=== PATIENT | male | born 1940 | race Caucasian/White ===

== ENCOUNTER 2020-05-29 06:51 | Inpatient (IN) ==
[2020-05-29] MEDS ORDERED: Dexamethasone 4 MG/ML VIAL IVP ONE (07:06)
[2020-05-29] MEDS ORDERED: Doxycycline 100 MG in 0.9 % Sodium Chloride Mini Bag 100 ML IVPB ONE (07:06)
[2020-05-29] MEDS ORDERED: Ipratropium/Albuterol Neb 3 ML IH ONE (07:06)
[2020-05-29] MEDS ORDERED: Ondansetron 4 MG/2 ML VIAL IVP ONE (07:12)
[2020-05-29] MEDS ORDERED: Acetaminophen 325 MG TABLET PO ONE (07:13)
[2020-05-29 08:01] LABS: Basophils % 0.2 %; Hematocrit 39.7 % (37.5-50.1); Hemoglobin 12.8 g/dL (12.9-16.9); Immature Granulocytes % 0.5 % (0-4); Lymphocytes # 0.3 K/mcL (0.6-4.6); Lymphocytes % 5.5 %; Mean Corpuscular HGB Conc 32.2 g/dL (31.6-35.5); Mean Corpuscular Hemoglobin 29.5 pg (28.0-33.3); Mean Corpuscular Volume 91.5 fL (83.0-100.0); Mean Platelet Volume 9.5 fL (9.4-12.4); Monocytes # 0.5 K/mcL (0.0-1.3); Monocytes % 8.3 %; Platelet Count 165 K/mcL (140-400); Red Blood Count 4.34 M/mcL (4.19-5.50); Red Cell Distribution Width 12.9 % (11.5-14.5); Segmented Neutrophils % 85.5 %
[2020-05-29 08:05] LABS: Neutrophils # 5.2 K/mcL (1.6-8.9); White Blood Count 6.1 K/mcL (4.3-11.1)
[2020-05-29 08:08] LABS: INR 1.1; Prothrombin Time 12.8 Seconds (9.4-12.1)
[2020-05-29 08:10] LABS: Activated Partial Thrombo Time 23.9 Seconds (26.0-36.0)
[2020-05-29 08:56] LABS: Albumin 3.6 g/dL (3.5-5.7); Albumin/Globulin Ratio 1.3 (1.1-2.2); Globulin 2.7 g/dL (2.4-3.5); Lactate Dehydrogenase 270 Units/L (140-271); Total Protein 6.3 g/dL (6.4-8.9)
[2020-05-29 09:15] LABS: Alanine Aminotransferase 29 Units/L (7-52); Alkaline Phosphatase 75 Units/L (34-104); Aspartate Amino Transferase 43 Units/L (13-39); BUN/Creatinine Ratio 21 (6-26); Bilirubin,Direct 0.1 mg/dL (0.0-0.2); Bilirubin,Indirect 0.3 mg/dL (0.0-1.0); Bilirubin,Total 0.4 mg/dL (0.3-1.0); Blood Urea Nitrogen 26 mg/dL (8-23); Calcium 8.8 mg/dL (8.6-10.3); Carbon Dioxide 24 mEq/L (23-29); Chloride 106 mEq/L (98-107); Ferritin 207 ng/mL (20-250); Glucose 127 mg/dL (70-105); Magnesium 1.7 mg/dL (1.6-2.6); Osmolality,Calculated 294 (280-300); Phosphorous 2.1 mg/dL (2.7-4.5); Potassium 4.8 mEq/L (3.5-5.1); Sodium 139 mEq/L (136-145); Troponin I < 0.03 ng/mL (< 0.04); eGFR For African Americans > 60 (> 60); eGFR For Non-African Americans 57 (> 60)
[2020-05-29] MEDS ORDERED: Isovue-370 500 ML BOTTLE IVP ONE (09:31)
[2020-05-29 09:41] LABS: C-Reactive Protein 30 mg/L (Less than 10)
[2020-05-29] MEDS ORDERED: Naloxone 0.4 MG/ML INJ IVP PRN (10:34)
[2020-05-29] MEDS ORDERED: cefTRIAXone 1,000 MG in Water for inj. (sterile) 10 ML IVP SCH (11:00)
[2020-05-29] MEDS: Azithromycin 500 MG in 0.9 % Sodium Chloride 250 ML IVPB SCH (11:28)
[2020-05-29 23:30] LABS: Bacteria,Urine Few per hpf (None-Few); Bilirubin,Urine Negative (Negative); Blood,Urine Negative (Negative); Clarity,Urine Clear (Clear); Color,Urine Yellow (Yellow); Glucose,Urine (UA) Normal (Normal); Ketones,Urine Negative (Negative); Leukocyte Esterase,Urine Negative (Negative); Mucus,Urine Few per lpf (None-Few); Nitrite,Urine Negative (Negative); Protein,Urine 50 mg/dL (Neg-Trace); RBC,Urine 0-3 per hpf (0-3); Specific Gravity,Urine > 1.030 (1.010-1.025); Urobilinogen,Urine Normal (Normal); WBC,Urine 0-3 per hpf (0-3)
[2020-05-30] MEDS: *HR* Enoxaparin 40 MG/0.4 ML SYRINGE SQ SCH (05:18)
[2020-05-30 05:26] LABS: Basophils % 0.1 %; Hematocrit 42.4 % (37.5-50.1); Immature Granulocytes % 0.8 % (0-4); Lymphocytes # 0.5 K/mcL (0.6-4.6); Mean Corpuscular HGB Conc 30.7 g/dL (31.6-35.5); Mean Corpuscular Hemoglobin 29.6 pg (28.0-33.3); Mean Corpuscular Volume 96.6 fL (83.0-100.0); Mean Platelet Volume 10.1 fL (9.4-12.4); Monocytes # 0.6 K/mcL (0.0-1.3); Monocytes % 5.8 %; Platelet Count 172 K/mcL (140-400); Red Blood Count 4.39 M/mcL (4.19-5.50); Red Cell Distribution Width 13.1 % (11.5-14.5); Segmented Neutrophils % 88.3 %
[2020-05-30 05:30] LABS: Neutrophils # 8.7 K/mcL (1.6-8.9); White Blood Count 9.8 K/mcL (4.3-11.1)
[2020-05-30 05:33] LABS: Fibrinogen 391 mg/dL (169-393)
[2020-05-30 05:35] LABS: D-Dimer 1655 ng/mLFEU (0-500)
[2020-05-30 05:47] LABS: Alanine Aminotransferase 27 Units/L (7-52); Albumin 3.7 g/dL (3.5-5.7); Albumin/Globulin Ratio 1.3 (1.1-2.2); Alkaline Phosphatase 75 Units/L (34-104); Aspartate Amino Transferase 38 Units/L (13-39); Bilirubin,Direct 0.1 mg/dL (0.0-0.2); Bilirubin,Indirect 0.2 mg/dL (0.0-1.0); Bilirubin,Total 0.3 mg/dL (0.3-1.0); Globulin 2.9 g/dL (2.4-3.5); Total Protein 6.6 g/dL (6.4-8.9)
[2020-05-30 06:48] LABS: BUN/Creatinine Ratio 22 (6-26); Blood Urea Nitrogen 28 mg/dL (8-23); Calcium 8.9 mg/dL (8.6-10.3); Carbon Dioxide 20 mEq/L (23-29); Chloride 105 mEq/L (98-107); Glucose 141 mg/dL (70-105); Magnesium 1.9 mg/dL (1.6-2.6); Osmolality,Calculated 296 (280-300); Phosphorous 2.5 mg/dL (2.7-4.5); Potassium 4.2 mEq/L (3.5-5.1); Sodium 139 mEq/L (136-145); eGFR For African Americans > 60 (> 60); eGFR For Non-African Americans 53 (> 60)
[2020-05-30] MEDS ORDERED: Furosemide 20 MG/2 ML VIAL IVP ONE (07:40)
[2020-05-30] MEDS: cefTRIAXone 2,000 MG in Water for inj. (sterile) 20 ML IVP SCH (08:17)
[2020-05-30] MEDS ORDERED: Dexamethasone Sodium Phos/PF 10 MG/ML VIAL IVP SCH (09:00)
[2020-05-30] MEDS ORDERED: Dexmedetomidine HCl 400 MCG/100 ML MLS IVC SCH (10:45)
[2020-05-30] MEDS: Azithromycin 500 MG in 0.9 % Sodium Chloride 250 ML IVPB SCH (12:40)
[2020-05-30] MEDS ORDERED: Remdesivir 200 MG in 0.9 % Sodium Chloride 100 ML IVPB ONE (13:30)
[2020-05-31 05:36] LABS: Hematocrit 39.4 % (37.5-50.1); Hemoglobin 12.9 g/dL (12.9-16.9); Mean Corpuscular HGB Conc 32.7 g/dL (31.6-35.5); Mean Corpuscular Hemoglobin 30.4 pg (28.0-33.3); Mean Corpuscular Volume 92.9 fL (83.0-100.0); Mean Platelet Volume 9.5 fL (9.4-12.4); Platelet Count 218 K/mcL (140-400); Red Blood Count 4.24 M/mcL (4.19-5.50); Red Cell Distribution Width 13.2 % (11.5-14.5); White Blood Count 10.5 K/mcL (4.3-11.1)
[2020-05-31 05:46] LABS: INR 1.2; Prothrombin Time 13.6 Seconds (9.4-12.1)
[2020-05-31 05:58] LABS: Alanine Aminotransferase 34 Units/L (7-52); Albumin 3.5 g/dL (3.5-5.7); Albumin/Globulin Ratio 1.3 (1.1-2.2); Alkaline Phosphatase 68 Units/L (34-104); Aspartate Amino Transferase 46 Units/L (13-39); BUN/Creatinine Ratio 30 (6-26); Bilirubin,Total 0.5 mg/dL (0.3-1.0); Blood Urea Nitrogen 35 mg/dL (8-23); Calcium 8.9 mg/dL (8.6-10.3); Carbon Dioxide 24 mEq/L (23-29); Chloride 106 mEq/L (98-107); Globulin 2.8 g/dL (2.4-3.5); Glucose 102 mg/dL (70-105); Osmolality,Calculated 296 (280-300); Potassium 4.5 mEq/L (3.5-5.1); Sodium 139 mEq/L (136-145); Total Protein 6.3 g/dL (6.4-8.9); eGFR For African Americans > 60 (> 60); eGFR For Non-African Americans > 60 (> 60)
[2020-05-31] MEDS: *HR* Enoxaparin 40 MG/0.4 ML SYRINGE SQ SCH (06:16)
[2020-05-31] MEDS: cefTRIAXone 2,000 MG in Water for inj. (sterile) 20 ML IVP SCH (09:22)
[2020-05-31] MEDS: Acetaminophen 325 MG TABLET PO PRN ×2 (10:47→21:41)
[2020-05-31] MEDS: Azithromycin 500 MG in 0.9 % Sodium Chloride 250 ML IVPB SCH (11:51)
[2020-05-31] MEDS: Furosemide 20 MG/2 ML VIAL IVP SCH (16:30)
[2020-05-31] MEDS: Remdesivir 100 MG in 0.9 % Sodium Chloride 100 ML IVPB SCH (16:31)
[2020-05-31] MEDS ORDERED: Melatonin 3 MG TABLET PO ONE (20:00)
[2020-06-01] MEDS: *HR* Enoxaparin 40 MG/0.4 ML SYRINGE SQ SCH (05:01)
[2020-06-01 05:23] LABS: Basophils % 0.3 %; Hematocrit 46.7 % (37.5-50.1); Lymphocytes # 0.8 K/mcL (0.6-4.6); Lymphocytes % 8.8 %; Mean Corpuscular HGB Conc 31.5 g/dL (31.6-35.5); Mean Corpuscular Volume 95.3 fL (83.0-100.0); Mean Platelet Volume 9.8 fL (9.4-12.4); Monocytes # 0.5 K/mcL (0.0-1.3); Monocytes % 5.4 %; Neutrophils # 7.7 K/mcL (1.6-8.9); Platelet Count 232 K/mcL (140-400); Red Cell Distribution Width 13.2 % (11.5-14.5); Segmented Neutrophils % 84.5 %; White Blood Count 9.1 K/mcL (4.3-11.1)
[2020-06-01 05:24] LABS: Hemoglobin 14.7 g/dL (12.9-16.9)
[2020-06-01 05:27] LABS: INR 1.4; Prothrombin Time 15.9 Seconds (9.4-12.1)
[2020-06-01 05:45] LABS: Alanine Aminotransferase 35 Units/L (7-52); Albumin 3.8 g/dL (3.5-5.7); Albumin/Globulin Ratio 1.2 (1.1-2.2); Alkaline Phosphatase 72 Units/L (34-104); Aspartate Amino Transferase 46 Units/L (13-39); BUN/Creatinine Ratio 34 (6-26); Bilirubin,Total 0.7 mg/dL (0.3-1.0); Blood Urea Nitrogen 39 mg/dL (8-23); Calcium 9.1 mg/dL (8.6-10.3); Carbon Dioxide 26 mEq/L (23-29); Chloride 103 mEq/L (98-107); Globulin 3.3 g/dL (2.4-3.5); Glucose 109 mg/dL (70-105); Osmolality,Calculated 296 (280-300); Potassium 4.4 mEq/L (3.5-5.1); Sodium 138 mEq/L (136-145); Total Protein 7.1 g/dL (6.4-8.9); eGFR For African Americans > 60 (> 60); eGFR For Non-African Americans > 60 (> 60)
[2020-06-01] MEDS: Furosemide 20 MG/2 ML VIAL IVP SCH (08:53)
[2020-06-01] MEDS: cefTRIAXone 2,000 MG in Water for inj. (sterile) 20 ML IVP SCH (08:53)
[2020-06-01] MEDS: Azithromycin 500 MG in 0.9 % Sodium Chloride 250 ML IVPB SCH (12:00)
[2020-06-01] MEDS ORDERED: *HR* Metoprolol 5 MG/5 ML VIAL IVP ONE ×2 (14:03→14:06)
[2020-06-01] MEDS ORDERED: *HR* Heparin 5,000 UNIT/ML VIAL IVP ONE (14:43)
[2020-06-01] MEDS ORDERED: *HR* Heparin 5,000 UNIT/ML VIAL IVP PRN ×2 (14:43)
[2020-06-01] MEDS ORDERED: 0.9 % Sodium Chloride 1,000 ML IVC SCH (16:30)
[2020-06-01] MEDS: DilTIAZem 50 MG/50 ML IV.SOLN IVC SCH (16:30)
[2020-06-01] MEDS: Heparin 25,000UNIT/250ML 1/2NS 25,000 UNIT/250 ML IV.SOLN IVC SCH (16:31)
[2020-06-01] MEDS: *HR* OxyCODONE Immed Rel 5 MG TABLET PO PRN (16:38)
[2020-06-01] MEDS: Acetaminophen 325 MG TABLET PO PRN (16:39)
[2020-06-01] MEDS: Remdesivir 100 MG in 0.9 % Sodium Chloride 100 ML IVPB SCH (17:32)
[2020-06-01 18:08] LABS: Heparin anti-factor XA UFH 0.07 IU/mL (0.30-0.70); INR 1.4; Prothrombin Time 16.3 Seconds (9.4-12.1)
[2020-06-02] MEDS: *HR* OxyCODONE Immed Rel 5 MG TABLET PO PRN (00:15)
[2020-06-02] MEDS: Acetaminophen 325 MG TABLET PO PRN (00:16)
[2020-06-02] MEDS ORDERED: *HR* LORazepam 2 MG/ML VIAL IVP ONE ×3 (00:17→13:10)
[2020-06-02] MEDS ORDERED: *HR* LORazepam 2 MG/ML VIAL ONE (00:18)
[2020-06-02 00:57] LABS: Basophils % 0.2 %; Eosinophils % 0.1 %; Hematocrit 40.5 % (37.5-50.1); Hemoglobin 13.3 g/dL (12.9-16.9); Immature Granulocytes % 0.7 % (0-4); Lymphocytes # 0.5 K/mcL (0.6-4.6); Lymphocytes % 5.1 %; Mean Corpuscular HGB Conc 32.8 g/dL (31.6-35.5); Mean Corpuscular Hemoglobin 30.3 pg (28.0-33.3); Mean Corpuscular Volume 92.3 fL (83.0-100.0); Mean Platelet Volume 9.5 fL (9.4-12.4); Monocytes # 0.6 K/mcL (0.0-1.3); Monocytes % 6.3 %; Neutrophils # 8.5 K/mcL (1.6-8.9); Platelet Count 255 K/mcL (140-400); Red Blood Count 4.39 M/mcL (4.19-5.50); Red Cell Distribution Width 13.2 % (11.5-14.5); Segmented Neutrophils % 87.6 %; White Blood Count 9.7 K/mcL (4.3-11.1)
[2020-06-02 01:04] LABS: INR 1.5; Prothrombin Time 17.3 Seconds (9.4-12.1)
[2020-06-02] MEDS: DilTIAZem 50 MG/50 ML IV.SOLN IVC SCH ×2 (01:08→06:27)
[2020-06-02 01:15] LABS: Alanine Aminotransferase 29 Units/L (7-52); Albumin 3.1 g/dL (3.5-5.7); Alkaline Phosphatase 69 Units/L (34-104); Aspartate Amino Transferase 31 Units/L (13-39); BUN/Creatinine Ratio 32 (6-26); Bilirubin,Total 0.6 mg/dL (0.3-1.0); Blood Urea Nitrogen 35 mg/dL (8-23); Calcium 8.4 mg/dL (8.6-10.3); Carbon Dioxide 26 mEq/L (23-29); Chloride 104 mEq/L (98-107); Glucose 121 mg/dL (70-105); Osmolality,Calculated 295 (280-300); Potassium 3.8 mEq/L (3.5-5.1); Sodium 138 mEq/L (136-145); Total Protein 6.1 g/dL (6.4-8.9); eGFR For African Americans > 60 (> 60); eGFR For Non-African Americans > 60 (> 60)
[2020-06-02] MEDS: cefTRIAXone 2,000 MG in Water for inj. (sterile) 20 ML IVP SCH (09:48)
[2020-06-02] MEDS: DilTIAZem CD (24hr) 120 MG CAP.ER.24H PO SCH (09:49)
[2020-06-02] MEDS: Furosemide 20 MG/2 ML VIAL IVP SCH (09:49)
[2020-06-02] MEDS: Azithromycin 500 MG in 0.9 % Sodium Chloride 250 ML IVPB SCH (09:53)
[2020-06-02] MEDS: Remdesivir 100 MG in 0.9 % Sodium Chloride 100 ML IVPB SCH (14:59)
[2020-06-02] MEDS: Heparin 25,000UNIT/250ML 1/2NS 25,000 UNIT/250 ML IV.SOLN IVC SCH (16:01)
[2020-06-02] MEDS: Apixaban 5 MG TABLET PO SCH (20:20)
[2020-06-03] MEDS: cefTRIAXone 2,000 MG in Water for inj. (sterile) 20 ML IVP SCH (08:58)
[2020-06-03] MEDS: DilTIAZem CD (24hr) 120 MG CAP.ER.24H PO SCH (08:59)
[2020-06-03] MEDS: Apixaban 5 MG TABLET PO SCH ×2 (08:59→21:43)
[2020-06-03] MEDS: Furosemide 20 MG/2 ML VIAL IVP SCH (08:59)
[2020-06-03 10:12] LABS: Hematocrit 46.4 % (37.5-50.1); Hemoglobin 14.3 g/dL (12.9-16.9); Mean Corpuscular HGB Conc 30.8 g/dL (31.6-35.5); Mean Corpuscular Hemoglobin 29.3 pg (28.0-33.3); Mean Corpuscular Volume 95.1 fL (83.0-100.0); Mean Platelet Volume 10.5 fL (9.4-12.4); Platelet Count 253 K/mcL (140-400); Red Blood Count 4.88 M/mcL (4.19-5.50); Red Cell Distribution Width 13.2 % (11.5-14.5)
[2020-06-03 10:17] LABS: INR 1.9; Prothrombin Time 21.6 Seconds (9.4-12.1)
[2020-06-03 10:32] LABS: Alanine Aminotransferase 35 Units/L (7-52); Albumin 3.5 g/dL (3.5-5.7); Albumin/Globulin Ratio 0.9 (1.1-2.2); Alkaline Phosphatase 82 Units/L (34-104); Aspartate Amino Transferase 46 Units/L (13-39); BUN/Creatinine Ratio 40 (6-26); Bilirubin,Total 0.5 mg/dL (0.3-1.0); Blood Urea Nitrogen 46 mg/dL (8-23); Calcium 9.3 mg/dL (8.6-10.3); Carbon Dioxide 25 mEq/L (23-29); Chloride 105 mEq/L (98-107); Globulin 3.9 g/dL (2.4-3.5); Glucose 112 mg/dL (70-105); Osmolality,Calculated 305 (280-300); Potassium 4.3 mEq/L (3.5-5.1); Sodium 141 mEq/L (136-145); Total Protein 7.4 g/dL (6.4-8.9); eGFR For African Americans > 60 (> 60); eGFR For Non-African Americans > 60 (> 60)
[2020-06-03] MEDS: Azithromycin 500 MG in 0.9 % Sodium Chloride 250 ML IVPB SCH (11:18)
[2020-06-03] MEDS: Remdesivir 100 MG in 0.9 % Sodium Chloride 100 ML IVPB SCH (14:49)
[2020-06-03] MEDS ORDERED: *HR* LORazepam 2 MG/ML VIAL IVP ONE (21:19)
[2020-06-04] MEDS ORDERED: *HR* LORazepam 2 MG/ML VIAL IVP ONE (00:30)
[2020-06-04] MEDS: Dexmedetomidine HCl 400 MCG/100 ML MLS IVC SCH ×2 (01:05→21:35)
[2020-06-04] MEDS: *HR* OxyCODONE Immed Rel 5 MG TABLET PO PRN ×2 (01:06→19:52)
[2020-06-04] MEDS: DilTIAZem CD (24hr) 120 MG CAP.ER.24H PO SCH ×2 (07:51→13:13)
[2020-06-04] MEDS: Apixaban 5 MG TABLET PO SCH ×3 (07:51→19:54)
[2020-06-04] MEDS: cefTRIAXone 2,000 MG in Water for inj. (sterile) 20 ML IVP SCH (07:52)
[2020-06-04] MEDS: Furosemide 20 MG/2 ML VIAL IVP SCH (07:52)
[2020-06-04] MEDS: Azithromycin 500 MG in 0.9 % Sodium Chloride 250 ML IVPB SCH (13:12)
[2020-06-04] MEDS: Furosemide 40 MG/4 ML VIAL IVP SCH (13:15)
[2020-06-04] MEDS: DilTIAZem 50 MG/50 ML IV.SOLN IVC SCH (16:15)
[2020-06-04] MEDS ORDERED: Haloperidol Lactate 5 MG/ML VIAL IVP ONE (18:00)
[2020-06-04] MEDS ORDERED: *HR* Metoprolol 5 MG/5 ML VIAL IVP ONE (18:02)
[2020-06-05] MEDS: *HR* OxyCODONE Immed Rel 5 MG TABLET PO PRN ×2 (01:19→23:01)
[2020-06-05 05:23] LABS: Basophils % 0.3 %; Eosinophils # 0.1 K/mcL (0.0-0.6); Eosinophils % 0.6 %; Hematocrit 42.2 % (37.5-50.1); Hemoglobin 13.6 g/dL (12.9-16.9); Immature Granulocytes % 1.3 % (0-4); Lymphocytes # 0.7 K/mcL (0.6-4.6); Lymphocytes % 7.6 %; Mean Corpuscular HGB Conc 32.2 g/dL (31.6-35.5); Mean Corpuscular Hemoglobin 30.4 pg (28.0-33.3); Mean Corpuscular Volume 94.2 fL (83.0-100.0); Mean Platelet Volume 9.8 fL (9.4-12.4); Monocytes # 0.5 K/mcL (0.0-1.3); Monocytes % 5.1 %; Neutrophils # 7.7 K/mcL (1.6-8.9); Platelet Count 372 K/mcL (140-400); Red Blood Count 4.48 M/mcL (4.19-5.50); Red Cell Distribution Width 13.3 % (11.5-14.5); Segmented Neutrophils % 85.1 %; White Blood Count 9.1 K/mcL (4.3-11.1)
[2020-06-05 05:42] LABS: BUN/Creatinine Ratio 55 (6-26); Blood Urea Nitrogen 72 mg/dL (8-23); Calcium 9.5 mg/dL (8.6-10.3); Carbon Dioxide 28 mEq/L (23-29); Chloride 111 mEq/L (98-107); Glucose 150 mg/dL (70-105); Osmolality,Calculated 330 (280-300); Potassium 4.3 mEq/L (3.5-5.1); Sodium 148 mEq/L (136-145); eGFR For African Americans > 60 (> 60); eGFR For Non-African Americans 52 (> 60)
[2020-06-05] MEDS: DilTIAZem CD (24hr) 120 MG CAP.ER.24H PO SCH (09:17)
[2020-06-05] MEDS: cefTRIAXone 2,000 MG in Water for inj. (sterile) 20 ML IVP SCH (09:17)
[2020-06-05] MEDS: Apixaban 5 MG TABLET PO SCH ×2 (09:17→23:00)
[2020-06-05] MEDS: Furosemide 40 MG/4 ML VIAL IVP SCH (09:18)
[2020-06-05] MEDS: Azithromycin 500 MG in 0.9 % Sodium Chloride 250 ML IVPB SCH (11:37)
[2020-06-05] MEDS: DilTIAZem 50 MG/50 ML IV.SOLN IVC SCH (11:38)
[2020-06-05] MEDS: Dexmedetomidine HCl 400 MCG/100 ML MLS IVC SCH ×2 (12:49→23:40)
[2020-06-05] MEDS: QUEtiapine Fumarate 25 MG TABLET PO SCH (23:00)
[2020-06-06 06:28] LABS: Basophils # 0.1 K/mcL (0.0-0.2); Basophils % 0.6 %; Eosinophils # 0.2 K/mcL (0.0-0.6); Eosinophils % 2.1 %; Hematocrit 45.2 % (37.5-50.1); Hemoglobin 14.1 g/dL (12.9-16.9); Immature Granulocytes % 1.2 % (0-4); Lymphocytes # 0.9 K/mcL (0.6-4.6); Lymphocytes % 10.5 %; Mean Corpuscular HGB Conc 31.2 g/dL (31.6-35.5); Mean Corpuscular Hemoglobin 29.3 pg (28.0-33.3); Mean Corpuscular Volume 93.8 fL (83.0-100.0); Mean Platelet Volume 9.6 fL (9.4-12.4); Monocytes # 0.5 K/mcL (0.0-1.3); Monocytes % 5.4 %; Neutrophils # 6.7 K/mcL (1.6-8.9); Platelet Count 396 K/mcL (140-400); Red Blood Count 4.82 M/mcL (4.19-5.50); Red Cell Distribution Width 13.4 % (11.5-14.5); Segmented Neutrophils % 80.2 %; White Blood Count 8.3 K/mcL (4.3-11.1)
[2020-06-06 07:15] LABS: Calcium 9.7 mg/dL (8.6-10.3); Potassium 4.2 mEq/L (3.5-5.1)
[2020-06-06] MEDS: Apixaban 5 MG TABLET PO SCH ×2 (08:30→21:06)
[2020-06-06] MEDS: DilTIAZem CD (24hr) 120 MG CAP.ER.24H PO SCH (08:30)
[2020-06-06] MEDS: Furosemide 40 MG/4 ML VIAL IVP SCH (08:30)
[2020-06-06] MEDS: cefTRIAXone 2,000 MG in Water for inj. (sterile) 20 ML IVP SCH (08:30)
[2020-06-06] MEDS: Azithromycin 500 MG in 0.9 % Sodium Chloride 250 ML IVPB SCH (11:05)
[2020-06-06] MEDS: Acetaminophen 325 MG TABLET PO PRN (11:08)
[2020-06-06] MEDS ORDERED: Azithromycin 250 MG TABLET PO SCH ×2 (15:00→17:00)
[2020-06-06] MEDS: OLANZapine 5 MG TAB.RAPDIS PO SCH (15:47)
[2020-06-06] MEDS: QUEtiapine Fumarate 25 MG TABLET PO SCH (21:07)
[2020-06-06] MEDS: *HR* OxyCODONE Immed Rel 5 MG TABLET PO PRN (21:08)
[2020-06-07] MEDS: Dexmedetomidine HCl 400 MCG/100 ML MLS IVC SCH ×2 (00:33→23:10)
[2020-06-07] MEDS: cefTRIAXone 2,000 MG in Water for inj. (sterile) 20 ML IVP SCH (07:54)
[2020-06-07 09:33] LABS: Basophils # 0.1 K/mcL (0.0-0.2); Basophils % 0.5 %; Eosinophils # 0.1 K/mcL (0.0-0.6); Eosinophils % 1.1 %; Hematocrit 50.9 % (37.5-50.1); Hemoglobin 15.7 g/dL (12.9-16.9); Immature Granulocytes % 1.2 % (0-4); Lymphocytes # 1.1 K/mcL (0.6-4.6); Lymphocytes % 9.9 %; Mean Corpuscular HGB Conc 30.8 g/dL (31.6-35.5); Mean Corpuscular Volume 97.1 fL (83.0-100.0); Mean Platelet Volume 9.9 fL (9.4-12.4); Monocytes # 0.6 K/mcL (0.0-1.3); Monocytes % 5.3 %; Neutrophils # 9.3 K/mcL (1.6-8.9); Platelet Count 434 K/mcL (140-400); Red Blood Count 5.24 M/mcL (4.19-5.50); Red Cell Distribution Width 13.6 % (11.5-14.5); White Blood Count 11.4 K/mcL (4.3-11.1)
[2020-06-07 09:54] LABS: Calcium 9.9 mg/dL (8.6-10.3); Potassium 4.7 mEq/L (3.5-5.1)
[2020-06-07] MEDS ORDERED: Azithromycin 500 MG in 0.9 % Sodium Chloride 250 ML IVPB SCH (11:00)
[2020-06-07] MEDS: Apixaban 5 MG TABLET PO SCH (11:44)
[2020-06-07] MEDS: OLANZapine 5 MG TAB.RAPDIS PO SCH (11:44)
[2020-06-07] MEDS: DilTIAZem CD (24hr) 120 MG CAP.ER.24H PO SCH (11:45)
[2020-06-07] MEDS: D5% in Water 1,000 ML IVC SCH (15:50)
[2020-06-07] MEDS: Dexamethasone Sodium Phos/PF 10 MG/ML VIAL IVP SCH (15:50)
[2020-06-07] MEDS ORDERED: *HR* Metoprolol 5 MG/5 ML VIAL IVP ONE (16:13)
[2020-06-07 18:49] LABS: Calcium 9.5 mg/dL (8.6-10.3); Potassium 3.9 mEq/L (3.5-5.1)
[2020-06-07] MEDS: Ipratropium 1 PUFF INHALER IH SCH ×2 (19:55→23:38)
[2020-06-07 20:32] LABS: Bacteria,Urine Few per hpf (None-Few); Bilirubin,Urine Negative (Negative); Blood,Urine Moderate (Negative); Clarity,Urine Turbid (Clear); Color,Urine Light-Yellow (Yellow); Glucose,Urine (UA) Normal (Normal); Ketones,Urine Negative (Negative); Leukocyte Esterase,Urine Negative (Negative); Mucus,Urine Few per lpf (None-Few); Nitrite,Urine Negative (Negative); Protein,Urine 30 mg/dL (Neg-Trace); RBC,Urine 30-50 per hpf (0-3); Specific Gravity,Urine 1.025 (1.010-1.025); Squamous Epithelial Cell,Urine Few per hpf (None-Few); Uric Acid Crystals,Urine Present; Urobilinogen,Urine Normal (Normal)
[2020-06-07 20:42] LABS: Creatinine,Urine 99 mg/dL; Potassium,Urine 29.7 mEq/L; Protein/Creatinine Ratio,Urine 0.52 mg/mg (0.00-0.20); Sodium, Urine 36.5 mEq/L
[2020-06-07] MEDS: QUEtiapine Fumarate 25 MG TABLET PO SCH (21:02)
[2020-06-07 21:35] LABS: Calcium 9.3 mg/dL (8.6-10.3); Magnesium 3.1 mg/dL (1.6-2.6); Phosphorous 2.9 mg/dL (2.7-4.5); Potassium 3.9 mEq/L (3.5-5.1)
[2020-06-07] MEDS: *HR* Heparin 5,000 UNIT/ML VIAL SQ SCH (21:41)
[2020-06-07] MEDS: *HR* Metoprolol 5 MG/5 ML VIAL IVP PRN (21:42)
[2020-06-07] MEDS ORDERED: D5% in Water 1,000 ML IVC PRN (23:38)
[2020-06-07] MEDS ORDERED: Dextrose Gel 15 GM/37.5 ML TUBE PO PRN ×2 (23:38)
[2020-06-08] MEDS: *HR* Metoprolol 5 MG/5 ML VIAL IVP PRN ×2 (01:31→12:33)
[2020-06-08] MEDS: D5% in Water 1,000 ML IVC SCH ×3 (03:20→20:53)
[2020-06-08] MEDS: Ipratropium 1 PUFF INHALER IH SCH ×5 (03:37→19:44)
[2020-06-08 05:26] LABS: Basophils # 0.1 K/mcL (0.0-0.2); Basophils % 0.4 %; Hematocrit 50.2 % (37.5-50.1); Hemoglobin 15.6 g/dL (12.9-16.9); Immature Granulocytes % 0.8 % (0-4); Lymphocytes # 0.7 K/mcL (0.6-4.6); Lymphocytes % 5.5 %; Mean Corpuscular HGB Conc 31.1 g/dL (31.6-35.5); Mean Corpuscular Hemoglobin 30.1 pg (28.0-33.3); Mean Corpuscular Volume 96.7 fL (83.0-100.0); Mean Platelet Volume 10.2 fL (9.4-12.4); Monocytes # 0.1 K/mcL (0.0-1.3); Monocytes % 1.2 %; Neutrophils # 10.8 K/mcL (1.6-8.9); Platelet Count 410 K/mcL (140-400); Red Blood Count 5.19 M/mcL (4.19-5.50); Red Cell Distribution Width 13.4 % (11.5-14.5); Segmented Neutrophils % 92.1 %; White Blood Count 11.7 K/mcL (4.3-11.1)
[2020-06-08] MEDS: Insulin LISPRO 300 UNITS/3 ML VIAL SUBQ SCH ×5 (05:32→23:52)
[2020-06-08] MEDS: *HR* Heparin 5,000 UNIT/ML VIAL SQ SCH (05:32)
[2020-06-08 05:46] LABS: Calcium 9.4 mg/dL (8.6-10.3); Magnesium 3.1 mg/dL (1.6-2.6); Phosphorous 2.6 mg/dL (2.7-4.5); Potassium 5.8 mEq/L (3.5-5.1)
[2020-06-08] MEDS: OLANZapine 5 MG TAB.RAPDIS PO SCH (09:33)
[2020-06-08] MEDS: DilTIAZem CD (24hr) 120 MG CAP.ER.24H PO SCH (09:33)
[2020-06-08] MEDS: Dexamethasone Sodium Phos/PF 10 MG/ML VIAL IVP SCH (10:00)
[2020-06-08] MEDS ORDERED: Vancomycin 1 EACH in 0.9 % Sodium Chloride 250 ML IVPB PRN (10:14)
[2020-06-08 10:26] LABS: Calcium 9.7 mg/dL (8.6-10.3); Potassium 3.8 mEq/L (3.5-5.1)
[2020-06-08] MEDS ORDERED: Piperacillin/Tazobactam 3.375 GM in 0.9 % Sodium Chloride Mini Bag 100 ML IVPB STA (10:38)
[2020-06-08] MEDS ORDERED: Vancomycin 1,250 MG/262.5 ML IV.SOLN IVPB ONE (10:41)
[2020-06-08] MEDS ORDERED: Piperacillin/Tazobactam 3.375 GM in 0.9 % Sodium Chloride Mini Bag 100 ML IVPB ONE (11:15)
[2020-06-08 11:39] LABS: Basophils % 0.2 %; Hematocrit 44.9 % (37.5-50.1); Lymphocytes # 0.8 K/mcL (0.6-4.6); Lymphocytes % 4.5 %; Mean Corpuscular HGB Conc 31.2 g/dL (31.6-35.5); Mean Corpuscular Hemoglobin 29.3 pg (28.0-33.3); Mean Corpuscular Volume 93.9 fL (83.0-100.0); Mean Platelet Volume 10.2 fL (9.4-12.4); Monocytes # 0.3 K/mcL (0.0-1.3); Monocytes % 1.5 %; Neutrophils # 15.6 K/mcL (1.6-8.9); Platelet Count 463 K/mcL (140-400); Red Blood Count 4.78 M/mcL (4.19-5.50); Red Cell Distribution Width 13.3 % (11.5-14.5); Segmented Neutrophils % 92.8 %; White Blood Count 16.8 K/mcL (4.3-11.1)
[2020-06-08 11:59] LABS: Albumin 2.9 g/dL (3.5-5.7); Albumin/Globulin Ratio 0.6 (1.1-2.2); Bilirubin,Direct 0.2 mg/dL (0.0-0.2); Bilirubin,Indirect 0.6 mg/dL (0.0-1.0); Bilirubin,Total 0.8 mg/dL (0.3-1.0); Calcium 9.6 mg/dL (8.6-10.3); Globulin 4.5 g/dL (2.4-3.5); Magnesium 2.9 mg/dL (1.6-2.6); Phosphorous 2.5 mg/dL (2.7-4.5); Potassium 3.6 mEq/L (3.5-5.1); Total Protein 7.4 g/dL (6.4-8.9)
[2020-06-08 12:13] LABS: Thyroid Stimulating Hormone 0.875 mcIU/mL (0.340-5.600)
[2020-06-08] MEDS ORDERED: Heparin 25,000UNIT/250ML 1/2NS 25,000 UNIT/250 ML IV.SOLN IVC SCH (15:30)
[2020-06-08 15:53] LABS: ABG Base Excess 4 mEq/L (-2 to 3); ABG HCO3 26 mEq/L (21-27); ABG Oxygen Saturation 95 % (95-98); ABG PCO2 34 mmHg (35-45); ABG PO2 68 mmHg (85-104); ABG TCO2 27 mEq/L (20-26)
[2020-06-08] MEDS ORDERED: *HR* Heparin 5,000 UNIT/ML VIAL IVP PRN (15:56)
[2020-06-08] MEDS ORDERED: Piperacillin/Tazobactam 3.375 GM in 0.9 % Sodium Chloride Mini Bag 100 ML IVPB SCH (16:00)
[2020-06-08 16:29] LABS: Hematocrit 44.4 % (37.5-50.1); Hemoglobin 13.9 g/dL (12.9-16.9); Mean Corpuscular HGB Conc 31.3 g/dL (31.6-35.5); Mean Corpuscular Hemoglobin 29.9 pg (28.0-33.3); Mean Corpuscular Volume 95.5 fL (83.0-100.0); Mean Platelet Volume 10.7 fL (9.4-12.4); Platelet Count 421 K/mcL (140-400); Red Blood Count 4.65 M/mcL (4.19-5.50); Red Cell Distribution Width 13.4 % (11.5-14.5); White Blood Count 20.3 K/mcL (4.3-11.1)
[2020-06-08 16:35] LABS: Heparin anti-factor XA UFH 0.8 IU/mL (0.30-0.70); INR 1.7; Prothrombin Time 19.6 Seconds (9.4-12.1)
[2020-06-08 16:44] LABS: Activated Partial Thrombo Time 21.3 Seconds (26.0-36.0)
[2020-06-08] MEDS ORDERED: Acetaminophen IV 1,000 MG/100 ML BAG IVPB ONE (16:45)
[2020-06-08] MEDS: Heparin 25,000UNIT/250ML 1/2NS 25,000 UNIT/250 ML IV.SOLN IVC SCH (16:59)
[2020-06-08] MEDS: Piperacillin/Tazobactam 3.375 GM in 0.9 % Sodium Chloride Mini Bag 100 ML IVPB SCH ×2 (16:59→23:56)
[2020-06-08] MEDS ORDERED: Potassium Phosphate 44 MEQ in D5% in Water 250 ML IVPB ONE (17:06)
[2020-06-08] MEDS ORDERED: DILTIAZEM IVC SCH (18:00)
[2020-06-08] MEDS ORDERED: WATER IVC SCH (18:00)
[2020-06-08] MEDS ORDERED: D5 IVC SCH (18:00)
[2020-06-08] MEDS: DILTIAZEM IVC SCH (18:42)
[2020-06-08] MEDS: WATER IVC SCH (18:42)
[2020-06-08] MEDS: D5 IVC SCH (18:42)
[2020-06-08 20:12] LABS: Calcium 9.3 mg/dL (8.6-10.3); Potassium 4.1 mEq/L (3.5-5.1)
[2020-06-08] MEDS: QUEtiapine Fumarate 25 MG TABLET PO SCH ×2 (20:18→22:20)
[2020-06-08] MEDS: *HR* Heparin 5,000 UNIT/ML VIAL IVP PRN (22:40)
[2020-06-09] MEDS: Ipratropium 1 PUFF INHALER IH SCH ×7 (00:18→23:15)
[2020-06-09 00:43] LABS: Calcium 8.8 mg/dL (8.6-10.3); Potassium 3.7 mEq/L (3.5-5.1)
[2020-06-09] MEDS: DILTIAZEM IVC SCH ×2 (01:51→16:30)
[2020-06-09] MEDS: D5 IVC SCH ×2 (01:51→16:30)
[2020-06-09] MEDS: WATER IVC SCH ×2 (01:51→16:30)
[2020-06-09] MEDS: D5% in Water 1,000 ML IVC SCH ×2 (04:33→16:38)
[2020-06-09] MEDS: Insulin LISPRO 300 UNITS/3 ML VIAL SUBQ SCH ×3 (06:09→17:35)
[2020-06-09 06:11] LABS: Basophils % 0.2 %; Immature Granulocytes % 1.2 % (0-4); Lymphocytes % 3.3 %; Monocytes % 2.2 %; Segmented Neutrophils % 93.1 %
[2020-06-09 06:12] LABS: Basophils # 0.1 K/mcL (0.0-0.2); Hematocrit 44.6 % (37.5-50.1); Hemoglobin 14.1 g/dL (12.9-16.9); Lymphocytes # 0.8 K/mcL (0.6-4.6); Mean Corpuscular HGB Conc 31.6 g/dL (31.6-35.5); Mean Corpuscular Hemoglobin 29.9 pg (28.0-33.3); Mean Corpuscular Volume 94.5 fL (83.0-100.0); Monocytes # 0.6 K/mcL (0.0-1.3); Neutrophils # 23.4 K/mcL (1.6-8.9); Platelet Count 275 K/mcL (140-400); Red Blood Count 4.72 M/mcL (4.19-5.50); Red Cell Distribution Width 13.2 % (11.5-14.5); White Blood Count 25.1 K/mcL (4.3-11.1)
[2020-06-09 06:26] LABS: Magnesium 2.6 mg/dL (1.6-2.6); Phosphorous 3.7 mg/dL (2.7-4.5); Potassium 3.7 mEq/L (3.5-5.1)
[2020-06-09 06:31] LABS: Platelet Estimate Normal (Normal)
[2020-06-09] MEDS: Dexamethasone Sodium Phos/PF 10 MG/ML VIAL IVP SCH (08:10)
[2020-06-09] MEDS: Piperacillin/Tazobactam 3.375 GM in 0.9 % Sodium Chloride Mini Bag 100 ML IVPB SCH ×2 (08:13→16:27)
[2020-06-09] MEDS: DilTIAZem CD (24hr) 120 MG CAP.ER.24H PO SCH (08:14)
[2020-06-09] MEDS ORDERED: Vancomycin 1,250 MG/262.5 ML IV.SOLN IVPB ONE (12:57)
[2020-06-09] MEDS: Heparin 25,000UNIT/250ML 1/2NS 25,000 UNIT/250 ML IV.SOLN IVC SCH (16:52)
[2020-06-09] MEDS: QUEtiapine Fumarate 25 MG TABLET PO SCH (20:36)
[2020-06-09 23:55] LABS: Calcium 8.7 mg/dL (8.6-10.3)
[2020-06-10] MEDS: Insulin LISPRO 300 UNITS/3 ML VIAL SUBQ SCH ×5 (00:25→17:15)
[2020-06-10] MEDS: Piperacillin/Tazobactam 3.375 GM in 0.9 % Sodium Chloride Mini Bag 100 ML IVPB SCH ×3 (00:53→16:45)
[2020-06-10] MEDS: WATER IVC SCH (03:17)
[2020-06-10] MEDS: DILTIAZEM IVC SCH (03:17)
[2020-06-10] MEDS: D5 IVC SCH (03:17)
[2020-06-10] MEDS: D5% in Water 1,000 ML IVC SCH (03:18)
[2020-06-10] MEDS: Ipratropium 1 PUFF INHALER IH SCH ×6 (04:06→23:02)
[2020-06-10] MEDS: DilTIAZem CD (24hr) 120 MG CAP.ER.24H PO SCH (08:09)
[2020-06-10] MEDS: *HR* Heparin 5,000 UNIT/ML VIAL IVP PRN (08:10)
[2020-06-10] MEDS: Dexamethasone Sodium Phos/PF 10 MG/ML VIAL IVP SCH (08:11)
[2020-06-10 10:20] LABS: Basophils % 0.2 %; Hematocrit 40.3 % (37.5-50.1); Hemoglobin 12.9 g/dL (12.9-16.9); Immature Granulocytes % 1.6 % (0-4); Lymphocytes # 0.7 K/mcL (0.6-4.6); Lymphocytes % 3.7 %; Mean Corpuscular Volume 93.7 fL (83.0-100.0); Mean Platelet Volume 11.1 fL (9.4-12.4); Monocytes # 0.5 K/mcL (0.0-1.3); Monocytes % 2.6 %; Neutrophils # 17.6 K/mcL (1.6-8.9); Platelet Count 297 K/mcL (140-400); Red Cell Distribution Width 13.3 % (11.5-14.5); Segmented Neutrophils % 91.9 %; White Blood Count 19.1 K/mcL (4.3-11.1)
[2020-06-10 10:38] LABS: Calcium 8.8 mg/dL (8.6-10.3); Phosphorous 3.2 mg/dL (2.7-4.5)
[2020-06-10] MEDS: Apixaban 5 MG TABLET PO SCH ×2 (12:45→20:35)
[2020-06-10] MEDS ORDERED: Vancomycin 1,250 MG/262.5 ML IV.SOLN IVPB ONE (15:00)
[2020-06-10] MEDS: QUEtiapine Fumarate 25 MG TABLET PO SCH (20:35)
[2020-06-10] MEDS: *HR* OxyCODONE Immed Rel 5 MG TABLET PO PRN (20:35)
[2020-06-11] MEDS: Piperacillin/Tazobactam 3.375 GM in 0.9 % Sodium Chloride Mini Bag 100 ML IVPB SCH ×3 (00:14→18:00)
[2020-06-11] MEDS: Ipratropium 1 PUFF INHALER IH SCH ×6 (03:41→23:44)
[2020-06-11] MEDS: Insulin LISPRO 300 UNITS/3 ML VIAL SUBQ SCH ×3 (05:31→18:00)
[2020-06-11] MEDS: DilTIAZem CD (24hr) 120 MG CAP.ER.24H PO SCH (07:46)
[2020-06-11] MEDS: Apixaban 5 MG TABLET PO SCH ×2 (07:46→19:24)
[2020-06-11] MEDS ORDERED: Dexamethasone Sodium Phos/PF 10 MG/ML VIAL IVP SCH (09:00)
[2020-06-11 18:19] LABS: Basophils % 0.4 %; Immature Granulocytes % 4.1 % (0-4); Mean Corpuscular HGB Conc 32.1 g/dL (31.6-35.5); Mean Platelet Volume 11.1 fL (9.4-12.4); Red Cell Distribution Width 13.4 % (11.5-14.5)
[2020-06-11 18:20] LABS: Basophils # 0.1 K/mcL (0.0-0.2); Hematocrit 41.7 % (37.5-50.1); Hemoglobin 13.4 g/dL (12.9-16.9); Lymphocytes # 0.9 K/mcL (0.6-4.6); Lymphocytes % 2.7 %; Mean Corpuscular Hemoglobin 29.5 pg (28.0-33.3); Mean Corpuscular Volume 91.9 fL (83.0-100.0); Monocytes # 1.6 K/mcL (0.0-1.3); Neutrophils # 27.7 K/mcL (1.6-8.9); Nucleated Red Blood Cells 0.1 /100 WBC (0); Platelet Count 337 K/mcL (140-400); Red Blood Count 4.54 M/mcL (4.19-5.50); Segmented Neutrophils % 87.8 %
[2020-06-11 18:30] LABS: White Blood Count 31.6 K/mcL (4.3-11.1)
[2020-06-11 18:57] LABS: Platelet Estimate Normal (Normal)
[2020-06-11 19:16] LABS: Basophils % 0.4 %
[2020-06-11 19:18] LABS: Basophils # 0.1 K/mcL (0.0-0.2); Hematocrit 41.1 % (37.5-50.1); Hemoglobin 12.7 g/dL (12.9-16.9); Lymphocytes # 0.6 K/mcL (0.6-4.6); Lymphocytes % 2.3 %; Mean Corpuscular HGB Conc 30.9 g/dL (31.6-35.5); Mean Corpuscular Hemoglobin 30.2 pg (28.0-33.3); Mean Corpuscular Volume 97.6 fL (83.0-100.0); Mean Platelet Volume 10.7 fL (9.4-12.4); Monocytes # 1.1 K/mcL (0.0-1.3); Monocytes % 3.9 %; Neutrophils # 24.5 K/mcL (1.6-8.9); Platelet Count 383 K/mcL (140-400); Red Blood Count 4.21 M/mcL (4.19-5.50); Red Cell Distribution Width 13.4 % (11.5-14.5); Segmented Neutrophils % 90.4 %; White Blood Count 27.1 K/mcL (4.3-11.1)
[2020-06-11] MEDS: QUEtiapine Fumarate 25 MG TABLET PO SCH (19:24)
[2020-06-11 19:45] LABS: Hypersegmented Neutrophils Present (Not Present); Platelet Estimate Normal (Normal)
[2020-06-11 19:59] LABS: BUN/Creatinine Ratio 43 (6-26); Blood Urea Nitrogen 52 mg/dL (8-23); Calcium 9.1 mg/dL (8.6-10.3); Carbon Dioxide 20 mEq/L (23-29); Chloride 109 mEq/L (98-107); Glucose 198 mg/dL (70-105); Magnesium 2.5 mg/dL (1.6-2.6); Osmolality,Calculated 306 (280-300); Phosphorous 3.2 mg/dL (2.7-4.5); Potassium 4.7 mEq/L (3.5-5.1); Sodium 138 mEq/L (136-145); Vancomycin,Trough 10 mcg/mL (5-10); eGFR For African Americans > 60 (> 60); eGFR For Non-African Americans 57 (> 60)
[2020-06-11] MEDS ORDERED: Vancomycin 1,500 MG/265 ML IV.SOLN IVPB ONE (21:07)
[2020-06-12 00:39] LABS: Basophils # 0.1 K/mcL (0.0-0.2); Basophils % 0.4 %; Hemoglobin 12.8 g/dL (12.9-16.9); Immature Granulocytes % 4.2 % (0-4); Lymphocytes # 0.7 K/mcL (0.6-4.6); Lymphocytes % 2.7 %; Mean Corpuscular Hemoglobin 30.3 pg (28.0-33.3); Mean Corpuscular Volume 94.6 fL (83.0-100.0); Mean Platelet Volume 10.5 fL (9.4-12.4); Monocytes # 0.8 K/mcL (0.0-1.3); Monocytes % 3.2 %; Neutrophils # 22.6 K/mcL (1.6-8.9); Platelet Count 361 K/mcL (140-400); Red Blood Count 4.23 M/mcL (4.19-5.50); Red Cell Distribution Width 13.3 % (11.5-14.5); Segmented Neutrophils % 89.5 %; White Blood Count 25.3 K/mcL (4.3-11.1)
[2020-06-12 00:54] LABS: BUN/Creatinine Ratio 42 (6-26); Blood Urea Nitrogen 50 mg/dL (8-23); Calcium 8.9 mg/dL (8.6-10.3); Carbon Dioxide 24 mEq/L (23-29); Chloride 110 mEq/L (98-107); Glucose 134 mg/dL (70-105); Osmolality,Calculated 305 (280-300); Potassium 5.1 mEq/L (3.5-5.1); Sodium 140 mEq/L (136-145); eGFR For African Americans > 60 (> 60); eGFR For Non-African Americans 58 (> 60)
[2020-06-12] MEDS: Insulin LISPRO 300 UNITS/3 ML VIAL SUBQ SCH ×4 (01:15→18:11)
[2020-06-12] MEDS: Piperacillin/Tazobactam 3.375 GM in 0.9 % Sodium Chloride Mini Bag 100 ML IVPB SCH ×3 (01:18→17:09)
[2020-06-12] MEDS: Ipratropium 1 PUFF INHALER IH SCH ×5 (04:03→20:28)
[2020-06-12] MEDS: Apixaban 5 MG TABLET PO SCH ×2 (09:20→19:56)
[2020-06-12] MEDS: DilTIAZem CD (24hr) 120 MG CAP.ER.24H PO SCH (09:20)
[2020-06-12] MEDS: dexAMETHasone 4 MG TABLET PO SCH (09:20)
[2020-06-12 13:09] LABS: Bilirubin,Urine Negative (Negative); Blood,Urine Trace (Negative); Clarity,Urine Clear (Clear); Color,Urine Light-Yellow (Yellow); Glucose,Urine (UA) Normal (Normal); Ketones,Urine Negative (Negative); Leukocyte Esterase,Urine Negative (Negative); Mucus,Urine Few per lpf (None-Few); Nitrite,Urine Negative (Negative); Protein,Urine Trace mg/dL (Neg-Trace); RBC,Urine 0-3 per hpf (0-3); Specific Gravity,Urine 1.027 (1.010-1.025); Urobilinogen,Urine Normal (Normal); WBC,Urine 0-3 per hpf (0-3)
[2020-06-12 16:23] LABS: Alanine Aminotransferase 222 Units/L (7-52); Albumin 2.8 g/dL (3.5-5.7); Alkaline Phosphatase 107 Units/L (34-104); Aspartate Amino Transferase 75 Units/L (13-39); Bilirubin,Direct 0.3 mg/dL (0.0-0.2); Bilirubin,Indirect 0.5 mg/dL (0.0-1.0); Bilirubin,Total 0.8 mg/dL (0.3-1.0); Globulin 2.9 g/dL (2.4-3.5); Lipase > 1800 Units/L (11-82); Total Protein 5.7 g/dL (6.4-8.9)
[2020-06-12] MEDS ORDERED: 0.9 % Sodium Chloride 1,000 ML IVC ONE (17:36)
[2020-06-12 18:59] LABS: Chol/HDL Ratio 4.2 (0-4.9); Cholesterol 89 mg/dL (< 200); HDL Cholesterol 21 mg/dL (40-59); LDL Cholesterol,Calculated 29 mg/dL (< 100); Lipase > 1800 Units/L (11-82); Triglycerides 196 mg/dL (< 150)
[2020-06-12] MEDS: QUEtiapine Fumarate 25 MG TABLET PO SCH (19:56)
[2020-06-12] MEDS: *HR* OxyCODONE Immed Rel 5 MG TABLET PO PRN (19:56)
[2020-06-13] MEDS: Ipratropium 1 PUFF INHALER IH SCH ×7 (00:04→23:04)
[2020-06-13] MEDS: Insulin LISPRO 300 UNITS/3 ML VIAL SUBQ SCH ×4 (00:22→20:55)
[2020-06-13] MEDS: Piperacillin/Tazobactam 3.375 GM in 0.9 % Sodium Chloride Mini Bag 100 ML IVPB SCH ×3 (01:00→17:29)
[2020-06-13] MEDS: Vancomycin 1,250 MG/262.5 ML IV.SOLN IVPB SCH (01:47)
[2020-06-13 02:12] LABS: Alanine Aminotransferase 202 Units/L (7-52); Albumin 2.2 g/dL (3.5-5.7); Alkaline Phosphatase 88 Units/L (34-104); Aspartate Amino Transferase 76 Units/L (13-39); BUN/Creatinine Ratio 58 (6-26); Bilirubin,Total 0.7 mg/dL (0.3-1.0); Blood Urea Nitrogen 73 mg/dL (8-23); Carbon Dioxide 21 mEq/L (23-29); Chloride 115 mEq/L (98-107); Globulin 2.3 g/dL (2.4-3.5); Glucose 168 mg/dL (70-105); Lipase > 1800 Units/L (11-82); Magnesium 2.4 mg/dL (1.6-2.6); Osmolality,Calculated 315 (280-300); Phosphorous 3.8 mg/dL (2.7-4.5); Potassium 5.8 mEq/L (3.5-5.1); Sodium 140 mEq/L (136-145); Total Protein 4.5 g/dL (6.4-8.9); eGFR For African Americans > 60 (> 60); eGFR For Non-African Americans 55 (> 60)
[2020-06-13 03:10] LABS: Lymphocytes % 1.8 %; Nucleated Red Blood Cells 0.1 /100 WBC (0)
[2020-06-13 03:12] LABS: Basophils # 0.1 K/mcL (0.0-0.2); Basophils % 0.2 %; Hematocrit 24.5 % (37.5-50.1); Hemoglobin 7.8 g/dL (12.9-16.9); Immature Granulocytes % 2.9 % (0-4); Lymphocytes # 0.6 K/mcL (0.6-4.6); Mean Corpuscular HGB Conc 31.8 g/dL (31.6-35.5); Mean Corpuscular Volume 97.2 fL (83.0-100.0); Monocytes # 1.5 K/mcL (0.0-1.3); Monocytes % 4.6 %; Platelet Count 304 K/mcL (140-400); Red Blood Count 2.52 M/mcL (4.19-5.50); Red Cell Distribution Width 13.6 % (11.5-14.5); Segmented Neutrophils % 90.5 %
[2020-06-13 03:36] LABS: Neutrophils # 29.1 K/mcL (1.6-8.9); White Blood Count 32.1 K/mcL (4.3-11.1)
[2020-06-13 04:19] LABS: Anisocytosis 1+ (Not Present); Platelet Estimate Normal (Normal); Toxic Granulation Present (Not Present)
[2020-06-13] MEDS ORDERED: 0.9 % Sodium Chloride 250 ML IVC SCH (04:30)
[2020-06-13] MEDS ORDERED: Isovue-370 500 ML BOTTLE IVP ONE (04:32)
[2020-06-13] MEDS ORDERED: 0.9 % Sodium Chloride 2,000 ML ONE (04:34)
[2020-06-13] MEDS ORDERED: 0.9 % Sodium Chloride 3,000 ML ONE (04:57)
[2020-06-13] MEDS ORDERED: 0.9 % Sodium Chloride 250 ML ONE (05:34)
[2020-06-13 06:10] LABS: ABG Base Excess -11 mEq/L (-2 to 3); ABG HCO3 15 mEq/L (21-27); ABG Oxygen Saturation 99 % (95-98); ABG PCO2 40 mmHg (35-45); ABG PO2 168 mmHg (85-104); ABG TCO2 17 mEq/L (20-26); Blood Gas VT 500 cc
[2020-06-13] MEDS ORDERED: Insulin Human Regular 10 UNIT in 0.9 % Sodium Chloride 10 ML IV ONE (06:27)
[2020-06-13] MEDS ORDERED: *HR* Dextrose 50 % in Water (Vial) 50 ML VIAL IVP ONE (06:27)
[2020-06-13] MEDS ORDERED: Amiodarone Premix 360 MG/200 ML BAG IVC ONE (06:29)
[2020-06-13] MEDS ORDERED: Amiodarone Premix 150 MG/100 ML BAG IVPB ONE (06:29)
[2020-06-13 07:02] LABS: Hematocrit 16.9 % (37.5-50.1)
[2020-06-13 07:06] LABS: Hemoglobin 5.1 g/dL (12.9-16.9)
[2020-06-13] MEDS: Norepinephrine 4 MG/254 ML IV.SOLN IVC SCH ×2 (07:43→15:44)
[2020-06-13] MEDS ORDERED: Octreotide 50 MCG/ML INJ IVP ONE (07:44)
[2020-06-13] MEDS: dexAMETHasone 4 MG TABLET PO SCH (07:50)
[2020-06-13] MEDS: Apixaban 5 MG TABLET PO SCH (07:50)
[2020-06-13] MEDS: DilTIAZem CD (24hr) 120 MG CAP.ER.24H PO SCH (07:50)
[2020-06-13] MEDS ORDERED: Octreotide 400 MCG in 0.9 % Sodium Chloride 100 ML IVC SCH (08:00)
[2020-06-13] MEDS: Vasopressin 40 UNIT in D5% in Water 100 ML IVC SCH (08:09)
[2020-06-13] MEDS: Pantoprazole 40 MG in 0.9 % Sodium Chloride Mini Bag 100 ML IVC SCH ×3 (09:29→20:25)
[2020-06-13 10:34] LABS: Nucleated Red Blood Cells 0.1 /100 WBC (0)
[2020-06-13 10:36] LABS: Hematocrit 34.3 % (37.5-50.1); Hemoglobin 11.2 g/dL (12.9-16.9); Mean Corpuscular HGB Conc 32.7 g/dL (31.6-35.5); Mean Corpuscular Hemoglobin 31.3 pg (28.0-33.3); Mean Corpuscular Volume 95.8 fL (83.0-100.0); Mean Platelet Volume 10.7 fL (9.4-12.4); Platelet Count 191 K/mcL (140-400); Red Blood Count 3.58 M/mcL (4.19-5.50); Red Cell Distribution Width 14.2 % (11.5-14.5)
[2020-06-13 10:44] LABS: INR 1.7; Prothrombin Time 19.9 Seconds (9.4-12.1)
[2020-06-13 10:44] LABS: Neutrophils # 32.9 K/mcL (1.6-8.9)
[2020-06-13 10:48] LABS: White Blood Count 38.2 K/mcL (4.3-11.1)
[2020-06-13 11:27] LABS: Monocytes # 5.4 K/mcL (0.0-1.3)
[2020-06-13 11:28] LABS: Platelet Estimate Normal (Normal); Toxic Granulation Present (Not Present)
[2020-06-13] MEDS: Amiodarone Premix 360 MG/200 ML BAG IVC SCH (12:38)
[2020-06-13] MEDS ORDERED: *HR* Rocuronium Bromide 50 MG/5 ML VIAL IVP ONE (14:45)
[2020-06-13] MEDS ORDERED: *HR* Midazolam HCl 5 MG/5 ML VIAL IVP ONE (14:45)
[2020-06-13] MEDS ORDERED: *HR* Propofol 200 MG/20 ML VIAL IVP ONE (14:45)
[2020-06-13] MEDS: FentaNYL (PF) 1,000 MCG/100 ML IV.SOLN IVC SCH (16:31)
[2020-06-13 17:37] LABS: Hematocrit 25.5 % (37.5-50.1)
[2020-06-13 17:38] LABS: Hemoglobin 8.4 g/dL (12.9-16.9)
[2020-06-13 19:35] LABS: ABG Base Excess -4 mEq/L (-2 to 3); ABG HCO3 22 mEq/L (21-27); ABG Oxygen Saturation 99 % (95-98); ABG PCO2 44 mmHg (35-45); ABG PH 7.32 pH Units (7.32-7.45); ABG PO2 126 mmHg (85-104); ABG TCO2 24 mEq/L (20-26); Blood Gas Modality AF; Blood Gas VT 450 cc
[2020-06-13 19:55] LABS: Hematocrit 25.5 % (37.5-50.1); Hemoglobin 8.4 g/dL (12.9-16.9)
[2020-06-13] MEDS: QUEtiapine Fumarate 25 MG TABLET PO SCH (20:37)
[2020-06-13 21:50] LABS: Calcium 7.7 mg/dL (8.6-10.3); Potassium 5.4 mEq/L (3.5-5.1)
[2020-06-14] MEDS: Insulin LISPRO 300 UNITS/3 ML VIAL SUBQ SCH ×4 (01:14→19:11)
[2020-06-14] MEDS: Pantoprazole 40 MG in 0.9 % Sodium Chloride Mini Bag 100 ML IVC SCH ×6 (01:15→22:54)
[2020-06-14] MEDS: Piperacillin/Tazobactam 3.375 GM in 0.9 % Sodium Chloride Mini Bag 100 ML IVPB SCH ×3 (01:18→17:33)
[2020-06-14 02:42] LABS: Hematocrit 24.5 % (37.5-50.1); Hemoglobin 7.9 g/dL (12.9-16.9)
[2020-06-14] MEDS: Ipratropium 1 PUFF INHALER IH SCH ×6 (03:05→23:25)
[2020-06-14] MEDS: Vancomycin 1,250 MG/262.5 ML IV.SOLN IVPB SCH (03:07)
[2020-06-14 04:35] LABS: ABG Base Excess -3 mEq/L (-2 to 3); ABG HCO3 23 mEq/L (21-27); ABG Oxygen Saturation 99 % (95-98); ABG PCO2 45 mmHg (35-45); ABG PH 7.32 pH Units (7.32-7.45); ABG PO2 152 mmHg (85-104); ABG TCO2 24 mEq/L (20-26); Blood Gas Modality AF; Blood Gas VT 450 cc
[2020-06-14] MEDS: Vasopressin 40 UNIT in D5% in Water 100 ML IVC SCH (05:26)
[2020-06-14] MEDS: Octreotide 400 MCG in 0.9 % Sodium Chloride 100 ML IVC SCH (06:32)
[2020-06-14 06:36] LABS: Nucleated Red Blood Cells 0.1 /100 WBC (0)
[2020-06-14 06:38] LABS: Basophils # 0.1 K/mcL (0.0-0.2); Basophils % 0.2 %; Hematocrit 23.3 % (37.5-50.1); Hemoglobin 7.6 g/dL (12.9-16.9); Immature Granulocytes % 3.4 % (0-4); Lymphocytes # 0.9 K/mcL (0.6-4.6); Lymphocytes % 3.1 %; Mean Corpuscular HGB Conc 32.6 g/dL (31.6-35.5); Mean Corpuscular Hemoglobin 30.8 pg (28.0-33.3); Mean Corpuscular Volume 94.3 fL (83.0-100.0); Mean Platelet Volume 11.1 fL (9.4-12.4); Monocytes # 1.4 K/mcL (0.0-1.3); Monocytes % 4.8 %; Neutrophils # 25.4 K/mcL (1.6-8.9); Platelet Count 147 K/mcL (140-400); Red Blood Count 2.47 M/mcL (4.19-5.50); Red Cell Distribution Width 15.1 % (11.5-14.5); Segmented Neutrophils % 88.5 %; White Blood Count 28.7 K/mcL (4.3-11.1)
[2020-06-14 06:51] LABS: Reactive Lymphocytes Present (Not Present)
[2020-06-14 06:52] LABS: Platelet Estimate Normal (Normal)
[2020-06-14] MEDS: FentaNYL (PF) 1,000 MCG/100 ML IV.SOLN IVC SCH ×2 (06:59→08:55)
[2020-06-14] MEDS: DilTIAZem CD (24hr) 120 MG CAP.ER.24H PO SCH (08:02)
[2020-06-14 10:14] LABS: Hemoglobin 7.4 g/dL (12.9-16.9)
[2020-06-14 10:35] LABS: Calcium 7.9 mg/dL (8.6-10.3); Potassium 5.2 mEq/L (3.5-5.1)
[2020-06-14] MEDS: Amiodarone Premix 360 MG/200 ML BAG IVC SCH ×2 (11:23→22:55)
[2020-06-14 20:33] LABS: Red Cell Distribution Width 15.7 % (11.5-14.5)
[2020-06-14 20:35] LABS: Hemoglobin 8.7 g/dL (12.9-16.9); Mean Corpuscular HGB Conc 33.5 g/dL (31.6-35.5); Mean Corpuscular Hemoglobin 31.2 pg (28.0-33.3); Mean Corpuscular Volume 93.2 fL (83.0-100.0); Mean Platelet Volume 11.3 fL (9.4-12.4); Nucleated Red Blood Cells 0.2 /100 WBC (0); Platelet Count 146 K/mcL (140-400); Red Blood Count 2.79 M/mcL (4.19-5.50); White Blood Count 29.7 K/mcL (4.3-11.1)
[2020-06-14 20:55] LABS: Lymphocytes # 1.8 K/mcL (0.6-4.6); Neutrophils # 27.9 K/mcL (1.6-8.9)
[2020-06-14] MEDS: QUEtiapine Fumarate 25 MG TABLET PO SCH (21:13)
[2020-06-15] MEDS: Insulin LISPRO 300 UNITS/3 ML VIAL SUBQ SCH ×5 (00:37→23:12)
[2020-06-15] MEDS: Octreotide 400 MCG in 0.9 % Sodium Chloride 100 ML IVC SCH ×2 (00:38→15:44)
[2020-06-15] MEDS: Piperacillin/Tazobactam 3.375 GM in 0.9 % Sodium Chloride Mini Bag 100 ML IVPB SCH ×3 (02:08→17:03)
[2020-06-15] MEDS: Vasopressin 40 UNIT in D5% in Water 100 ML IVC SCH (02:08)
[2020-06-15] MEDS: Pantoprazole 40 MG in 0.9 % Sodium Chloride Mini Bag 100 ML IVC SCH ×4 (03:31→20:07)
[2020-06-15] MEDS: Ipratropium 1 PUFF INHALER IH SCH ×6 (04:18→23:07)
[2020-06-15 04:23] LABS: Hemoglobin 8.4 g/dL (12.9-16.9); Nucleated Red Blood Cells 0.2 /100 WBC (0)
[2020-06-15 04:24] LABS: Hematocrit 25.5 % (37.5-50.1); Mean Corpuscular HGB Conc 32.9 g/dL (31.6-35.5); Mean Corpuscular Hemoglobin 30.9 pg (28.0-33.3); Mean Corpuscular Volume 93.8 fL (83.0-100.0); Mean Platelet Volume 11.2 fL (9.4-12.4); Platelet Count 151 K/mcL (140-400); Red Blood Count 2.72 M/mcL (4.19-5.50); White Blood Count 28.1 K/mcL (4.3-11.1)
[2020-06-15 04:35] LABS: ABG Base Excess -3 mEq/L (-2 to 3); ABG HCO3 23 mEq/L (21-27); ABG Oxygen Saturation 92 % (95-98); ABG PCO2 45 mmHg (35-45); ABG PH 7.32 pH Units (7.32-7.45); ABG PO2 69 mmHg (85-104); ABG TCO2 25 mEq/L (20-26); Blood Gas VT 450 cc
[2020-06-15 04:42] LABS: Calcium 7.9 mg/dL (8.6-10.3)
[2020-06-15 05:29] LABS: Eosinophils # 0.6 K/mcL (0.0-0.6); Lymphocytes # 1.1 K/mcL (0.6-4.6); Monocytes # 1.7 K/mcL (0.0-1.3); Neutrophils # 24.7 K/mcL (1.6-8.9); Platelet Estimate Normal (Normal); Toxic Granulation Present (Not Present)
[2020-06-15] MEDS: FentaNYL (PF) 1,000 MCG/100 ML IV.SOLN IVC SCH ×2 (05:34→22:49)
[2020-06-15] MEDS: Norepinephrine 4 MG/254 ML IV.SOLN IVC SCH (05:40)
[2020-06-15] MEDS: DilTIAZem CD (24hr) 120 MG CAP.ER.24H PO SCH (07:43)
[2020-06-15] MEDS ORDERED: Furosemide 40 MG/4 ML VIAL IVP ONE (11:09)
[2020-06-15] MEDS: Amiodarone Premix 360 MG/200 ML BAG IVC SCH ×2 (11:30→23:47)
[2020-06-15 12:11] LABS: Hematocrit 25.9 % (37.5-50.1); Hemoglobin 8.3 g/dL (12.9-16.9)
[2020-06-15 15:53] LABS: Calcium 8.3 mg/dL (8.6-10.3); Potassium 4.5 mEq/L (3.5-5.1)
[2020-06-16] MEDS: Piperacillin/Tazobactam 3.375 GM in 0.9 % Sodium Chloride Mini Bag 100 ML IVPB SCH ×3 (01:07→17:35)
[2020-06-16] MEDS: Pantoprazole 40 MG in 0.9 % Sodium Chloride Mini Bag 100 ML IVC SCH ×3 (01:07→12:24)
[2020-06-16] MEDS: Norepinephrine 4 MG/254 ML IV.SOLN IVC SCH (03:41)
[2020-06-16 03:45] LABS: Hematocrit 24.8 % (37.5-50.1); Hemoglobin 7.8 g/dL (12.9-16.9); Mean Corpuscular HGB Conc 31.5 g/dL (31.6-35.5); Mean Corpuscular Hemoglobin 29.5 pg (28.0-33.3); Mean Corpuscular Volume 93.9 fL (83.0-100.0); Mean Platelet Volume 10.7 fL (9.4-12.4); Nucleated Red Blood Cells 0.3 /100 WBC (0); Platelet Count 193 K/mcL (140-400); Red Blood Count 2.64 M/mcL (4.19-5.50); Red Cell Distribution Width 15.7 % (11.5-14.5); White Blood Count 24.3 K/mcL (4.3-11.1)
[2020-06-16] MEDS: Ipratropium 1 PUFF INHALER IH SCH ×6 (03:48→23:25)
[2020-06-16 04:00] LABS: ABG Base Excess -1 mEq/L (-2 to 3); ABG HCO3 25 mEq/L (21-27); ABG Oxygen Saturation 91 % (95-98); ABG PCO2 47 mmHg (35-45); ABG PH 7.34 pH Units (7.32-7.45); ABG PO2 66 mmHg (85-104); ABG TCO2 27 mEq/L (20-26); Blood Gas VT 450 cc
[2020-06-16 04:01] LABS: Calcium 8.1 mg/dL (8.6-10.3); Potassium 4.4 mEq/L (3.5-5.1)
[2020-06-16 04:02] LABS: Albumin 2.2 g/dL (3.5-5.7); Albumin/Globulin Ratio 0.9 (1.1-2.2); Bilirubin,Direct 0.5 mg/dL (0.0-0.2); Bilirubin,Indirect 0.4 mg/dL (0.0-1.0); Bilirubin,Total 0.9 mg/dL (0.3-1.0); Globulin 2.4 g/dL (2.4-3.5); Total Protein 4.6 g/dL (6.4-8.9)
[2020-06-16 04:16] LABS: Lymphocytes # 2.4 K/mcL (0.6-4.6); Monocytes # 0.5 K/mcL (0.0-1.3); Neutrophils # 20.4 K/mcL (1.6-8.9); Platelet Estimate Normal (Normal)
[2020-06-16 04:17] LABS: Toxic Granulation Present (Not Present)
[2020-06-16] MEDS: Insulin LISPRO 300 UNITS/3 ML VIAL SUBQ SCH ×3 (05:06→18:10)
[2020-06-16] MEDS: Octreotide 400 MCG in 0.9 % Sodium Chloride 100 ML IVC SCH (08:09)
[2020-06-16] MEDS ORDERED: Furosemide 40 MG/4 ML VIAL IVP ONE (08:10)
[2020-06-16 08:59] LABS: Hemoglobin 7.7 g/dL (12.9-16.9)
[2020-06-16] MEDS: Amiodarone Premix 360 MG/200 ML BAG IVC SCH ×2 (11:46→23:37)
[2020-06-16] MEDS: FentaNYL (PF) 1,000 MCG/100 ML IV.SOLN IVC SCH (12:29)
[2020-06-16 15:56] LABS: Hematocrit 25.2 % (37.5-50.1); Hemoglobin 8.2 g/dL (12.9-16.9)
[2020-06-16] MEDS: Pantoprazole 40 MG VIAL IVP SCH (18:10)
[2020-06-16 22:16] LABS: Hematocrit 23.6 % (37.5-50.1); Hemoglobin 7.4 g/dL (12.9-16.9)
[2020-06-17] MEDS: Insulin LISPRO 300 UNITS/3 ML VIAL SUBQ SCH ×5 (00:07→23:58)
[2020-06-17] MEDS: Norepinephrine 4 MG/254 ML IV.SOLN IVC SCH (00:18)
[2020-06-17] MEDS: Ipratropium 1 PUFF INHALER IH SCH ×5 (04:11→20:06)
[2020-06-17] MEDS: FentaNYL (PF) 1,000 MCG/100 ML IV.SOLN IVC SCH ×2 (04:15→19:31)
[2020-06-17 04:19] LABS: ABG Base Excess 1 mEq/L (-2 to 3); ABG HCO3 27 mEq/L (21-27); ABG Oxygen Saturation 93 % (95-98); ABG PCO2 44 mmHg (35-45); ABG PH 7.39 pH Units (7.32-7.45); ABG PO2 70 mmHg (85-104); ABG TCO2 28 mEq/L (20-26); Blood Gas Modality AF; Blood Gas VT 450 cc
[2020-06-17 04:53] LABS: Hematocrit 26.4 % (37.5-50.1); Hemoglobin 8.2 g/dL (12.9-16.9); Mean Corpuscular HGB Conc 31.1 g/dL (31.6-35.5); Mean Corpuscular Hemoglobin 29.6 pg (28.0-33.3); Mean Corpuscular Volume 95.3 fL (83.0-100.0); Mean Platelet Volume 10.5 fL (9.4-12.4); Nucleated Red Blood Cells 0.2 /100 WBC (0); Platelet Count 235 K/mcL (140-400); Red Blood Count 2.77 M/mcL (4.19-5.50); Red Cell Distribution Width 15.3 % (11.5-14.5); White Blood Count 24.3 K/mcL (4.3-11.1)
[2020-06-17] MEDS: Pantoprazole 40 MG VIAL IVP SCH ×2 (05:11→17:55)
[2020-06-17 05:13] LABS: BUN/Creatinine Ratio 38 (6-26); Blood Urea Nitrogen 47 mg/dL (8-23); Calcium 8.3 mg/dL (8.6-10.3); Carbon Dioxide 27 mEq/L (23-29); Chloride 114 mEq/L (98-107); Glucose 147 mg/dL (70-105); Osmolality,Calculated 317 (280-300); Potassium 4.3 mEq/L (3.5-5.1); Sodium 146 mEq/L (136-145); eGFR For African Americans > 60 (> 60); eGFR For Non-African Americans 57 (> 60)
[2020-06-17 05:14] LABS: Albumin 2.3 g/dL (3.5-5.7); Albumin/Globulin Ratio 0.8 (1.1-2.2); Bilirubin,Direct 0.5 mg/dL (0.0-0.2); Bilirubin,Indirect 0.4 mg/dL (0.0-1.0); Bilirubin,Total 0.9 mg/dL (0.3-1.0); Globulin 2.8 g/dL (2.4-3.5); Total Protein 5.1 g/dL (6.4-8.9)
[2020-06-17 05:45] LABS: Neutrophils # 23.3 K/mcL (1.6-8.9); Platelet Estimate Normal (Normal); Toxic Granulation Present (Not Present)
[2020-06-17] MEDS: Furosemide 40 MG/4 ML VIAL IVP SCH ×2 (08:48→17:55)
[2020-06-17] MEDS: Dexamethasone 4 MG/ML VIAL IVP SCH (11:46)
[2020-06-17] MEDS: Artificial Tears SOLN 15 ML BOTTLE BOTH EYES SCH ×4 (11:46→23:57)
[2020-06-17] MEDS: Dexmedetomidine HCl 400 MCG/100 ML MLS IVC SCH ×2 (11:46→19:29)
[2020-06-17] MEDS: Amiodarone Premix 360 MG/200 ML BAG IVC SCH (13:16)
[2020-06-17] MEDS: Piperacillin/Tazobactam 3.375 GM in 0.9 % Sodium Chloride Mini Bag 100 ML IVPB SCH ×2 (15:42→23:58)
[2020-06-17] MEDS: Chlorhexidine Rinse 15 ML MOUTHWASH MM SCH (19:31)
[2020-06-17] MEDS: Octreotide 400 MCG in 0.9 % Sodium Chloride 100 ML IVC SCH (20:44)
[2020-06-18] MEDS: Amiodarone Premix 360 MG/200 ML BAG IVC SCH ×2 (00:32→13:07)
[2020-06-18] MEDS: Norepinephrine 4 MG/254 ML IV.SOLN IVC SCH (02:18)
[2020-06-18] MEDS: Artificial Tears SOLN 15 ML BOTTLE BOTH EYES SCH ×5 (03:21→19:48)
[2020-06-18] MEDS: Ipratropium 1 PUFF INHALER IH SCH ×7 (03:46→23:44)
[2020-06-18 04:03] LABS: ABG Base Excess 3 mEq/L (-2 to 3); ABG HCO3 28 mEq/L (21-27); ABG Oxygen Saturation 96 % (95-98); ABG PCO2 41 mmHg (35-45); ABG PH 7.43 pH Units (7.32-7.45); ABG PO2 78 mmHg (85-104); ABG TCO2 29 mEq/L (20-26); Blood Gas VT 450 cc
[2020-06-18 04:21] LABS: Basophils % 0.6 %; Lymphocytes % 2.3 %; Mean Platelet Volume 10.7 fL (9.4-12.4)
[2020-06-18 04:22] LABS: Basophils # 0.2 K/mcL (0.0-0.2); Eosinophils # 0.1 K/mcL (0.0-0.6); Eosinophils % 0.2 %; Hematocrit 24.3 % (37.5-50.1); Immature Granulocytes % 7.3 % (0-4); Lymphocytes # 0.6 K/mcL (0.6-4.6); Mean Corpuscular HGB Conc 32.9 g/dL (31.6-35.5); Mean Corpuscular Hemoglobin 31.5 pg (28.0-33.3); Mean Corpuscular Volume 95.7 fL (83.0-100.0); Monocytes # 0.5 K/mcL (0.0-1.3); Monocytes % 1.8 %; Neutrophils # 23.5 K/mcL (1.6-8.9); Nucleated Red Blood Cells 0.1 /100 WBC (0); Platelet Count 244 K/mcL (140-400); Red Blood Count 2.54 M/mcL (4.19-5.50); Red Cell Distribution Width 14.8 % (11.5-14.5); Segmented Neutrophils % 87.8 %; White Blood Count 26.8 K/mcL (4.3-11.1)
[2020-06-18 04:39] LABS: Platelet Estimate Normal (Normal)
[2020-06-18 04:40] LABS: Toxic Granulation Present (Not Present)
[2020-06-18 04:43] LABS: Alanine Aminotransferase 56 Units/L (7-52); Albumin 2.3 g/dL (3.5-5.7); Albumin/Globulin Ratio 0.8 (1.1-2.2); Alkaline Phosphatase 114 Units/L (34-104); Aspartate Amino Transferase 26 Units/L (13-39); BUN/Creatinine Ratio 40 (6-26); Bilirubin,Direct 0.4 mg/dL (0.0-0.2); Bilirubin,Indirect 0.3 mg/dL (0.0-1.0); Bilirubin,Total 0.7 mg/dL (0.3-1.0); Blood Urea Nitrogen 52 mg/dL (8-23); Calcium 8.1 mg/dL (8.6-10.3); Carbon Dioxide 26 mEq/L (23-29); Chloride 109 mEq/L (98-107); Globulin 2.8 g/dL (2.4-3.5); Glucose 208 mg/dL (70-105); Osmolality,Calculated 318 (280-300); Potassium 4.3 mEq/L (3.5-5.1); Sodium 144 mEq/L (136-145); Total Protein 5.1 g/dL (6.4-8.9); eGFR For African Americans > 60 (> 60); eGFR For Non-African Americans 53 (> 60)
[2020-06-18] MEDS: Insulin LISPRO 300 UNITS/3 ML VIAL SUBQ SCH ×3 (05:15→18:59)
[2020-06-18] MEDS: Pantoprazole 40 MG VIAL IVP SCH ×2 (05:16→16:33)
[2020-06-18] MEDS: Dexmedetomidine HCl 400 MCG/100 ML MLS IVC SCH (05:32)
[2020-06-18] MEDS: Furosemide 40 MG/4 ML VIAL IVP SCH ×2 (07:36→16:33)
[2020-06-18] MEDS: Piperacillin/Tazobactam 3.375 GM in 0.9 % Sodium Chloride Mini Bag 100 ML IVPB SCH ×2 (07:36→16:33)
[2020-06-18] MEDS: Chlorhexidine Rinse 15 ML MOUTHWASH MM SCH ×2 (07:36→19:48)
[2020-06-18] MEDS: Dexamethasone 4 MG/ML VIAL IVP SCH (07:37)
[2020-06-18] MEDS: FentaNYL (PF) 1,000 MCG/100 ML IV.SOLN IVC SCH (13:07)
[2020-06-19] MEDS: Artificial Tears SOLN 15 ML BOTTLE BOTH EYES SCH ×3 (00:22→08:35)
[2020-06-19] MEDS: Piperacillin/Tazobactam 3.375 GM in 0.9 % Sodium Chloride Mini Bag 100 ML IVPB SCH ×3 (00:22→17:03)
[2020-06-19] MEDS: Insulin LISPRO 300 UNITS/3 ML VIAL SUBQ SCH ×5 (00:34→23:58)
[2020-06-19] MEDS: Amiodarone Premix 360 MG/200 ML BAG IVC SCH ×2 (01:30→16:29)
[2020-06-19] MEDS: Ipratropium 1 PUFF INHALER IH SCH ×6 (04:21→23:48)
[2020-06-19 04:47] LABS: Hematocrit 27.9 % (37.5-50.1); Hemoglobin 8.9 g/dL (12.9-16.9); Mean Corpuscular HGB Conc 31.9 g/dL (31.6-35.5); Mean Corpuscular Volume 93.9 fL (83.0-100.0); Mean Platelet Volume 10.6 fL (9.4-12.4); Platelet Count 290 K/mcL (140-400); Red Blood Count 2.97 M/mcL (4.19-5.50); Red Cell Distribution Width 14.8 % (11.5-14.5); White Blood Count 23.9 K/mcL (4.3-11.1)
[2020-06-19 04:58] LABS: ABG Base Excess 10 mEq/L (-2 to 3); ABG HCO3 32 mEq/L (21-27); ABG Oxygen Saturation 94 % (95-98); ABG PCO2 35 mmHg (35-45); ABG PH 7.58 pH Units (7.32-7.45); ABG PO2 58 mmHg (85-104); ABG TCO2 33 mEq/L (20-26)
[2020-06-19] MEDS ORDERED: *HR* Metoprolol 5 MG/5 ML VIAL IVP ONE (05:04)
[2020-06-19 05:07] LABS: BUN/Creatinine Ratio 40 (6-26); Blood Urea Nitrogen 55 mg/dL (8-23); Calcium 8.5 mg/dL (8.6-10.3); Carbon Dioxide 31 mEq/L (23-29); Chloride 104 mEq/L (98-107); Glucose 112 mg/dL (70-105); Magnesium 1.8 mg/dL (1.6-2.6); Osmolality,Calculated 314 (280-300); Phosphorous 2.6 mg/dL (2.7-4.5); Potassium 3.8 mEq/L (3.5-5.1); Sodium 144 mEq/L (136-145); eGFR For African Americans > 60 (> 60); eGFR For Non-African Americans 50 (> 60)
[2020-06-19] MEDS: Pantoprazole 40 MG VIAL IVP SCH ×2 (05:16→17:03)
[2020-06-19] MEDS ORDERED: Potassium Phosphate 44 MEQ in 0.9 % Sodium Chloride 250 ML IVPB ONE (05:53)
[2020-06-19] MEDS: Norepinephrine 4 MG/254 ML IV.SOLN IVC SCH (06:39)
[2020-06-19] MEDS ORDERED: *HR* Heparin 5,000 UNIT/ML VIAL IVP PRN ×2 (09:38)
[2020-06-19] MEDS: Furosemide 40 MG/4 ML VIAL IVP SCH (10:04)
[2020-06-19] MEDS: Dexamethasone 4 MG/ML VIAL IVP SCH (10:05)
[2020-06-19 11:24] LABS: Hematocrit 26.4 % (37.5-50.1); Hemoglobin 8.6 g/dL (12.9-16.9); Mean Corpuscular HGB Conc 32.6 g/dL (31.6-35.5); Mean Corpuscular Hemoglobin 30.9 pg (28.0-33.3); Mean Platelet Volume 10.6 fL (9.4-12.4); Platelet Count 282 K/mcL (140-400); Red Blood Count 2.78 M/mcL (4.19-5.50); White Blood Count 18.8 K/mcL (4.3-11.1)
[2020-06-19] MEDS: Chlorhexidine Rinse 15 ML MOUTHWASH MM SCH (11:45)
[2020-06-19] MEDS: Heparin 25,000UNIT/250ML 1/2NS 25,000 UNIT/250 ML IV.SOLN IVC SCH (11:46)
[2020-06-19 17:11] LABS: Hematocrit 28.8 % (37.5-50.1); Hemoglobin 9.1 g/dL (12.9-16.9)
[2020-06-19 17:18] LABS: INR 1.2; Prothrombin Time 13.5 Seconds (9.4-12.1)
[2020-06-19 17:22] LABS: Heparin anti-factor XA UFH < 0.04 IU/mL (0.30-0.70)
[2020-06-19 22:00] LABS: Hematocrit 28.4 % (37.5-50.1); Hemoglobin 8.8 g/dL (12.9-16.9)
[2020-06-20] MEDS: Piperacillin/Tazobactam 3.375 GM in 0.9 % Sodium Chloride Mini Bag 100 ML IVPB SCH ×2 (00:14→08:51)
[2020-06-20] MEDS: Amiodarone Premix 360 MG/200 ML BAG IVC SCH ×2 (02:40→14:39)
[2020-06-20] MEDS: Ipratropium 1 PUFF INHALER IH SCH ×5 (04:03→20:04)
[2020-06-20] MEDS: Norepinephrine 4 MG/254 ML IV.SOLN IVC SCH (04:33)
[2020-06-20 04:45] LABS: VBG Ionized Calcium 1.12 mmol/L (1.15-1.35)
[2020-06-20 04:45] LABS: Basophils # 0.1 K/mcL (0.0-0.2); Basophils % 0.8 %; Eosinophils % 0.2 %; Hematocrit 27.3 % (37.5-50.1); Hemoglobin 8.7 g/dL (12.9-16.9); Immature Granulocytes % 6.5 % (0-4); Lymphocytes % 6.5 %; Mean Corpuscular HGB Conc 31.9 g/dL (31.6-35.5); Mean Corpuscular Hemoglobin 30.1 pg (28.0-33.3); Mean Corpuscular Volume 94.5 fL (83.0-100.0); Mean Platelet Volume 10.4 fL (9.4-12.4); Monocytes # 0.2 K/mcL (0.0-1.3); Monocytes % 1.6 %; Neutrophils # 12.9 K/mcL (1.6-8.9); Nucleated Red Blood Cells 0.6 /100 WBC (0); Platelet Count 288 K/mcL (140-400); Red Blood Count 2.89 M/mcL (4.19-5.50); Red Cell Distribution Width 15.3 % (11.5-14.5); Segmented Neutrophils % 84.4 %; White Blood Count 15.3 K/mcL (4.3-11.1)
[2020-06-20 05:04] LABS: Alanine Aminotransferase 116 Units/L (7-52); Albumin 2.5 g/dL (3.5-5.7); Albumin/Globulin Ratio 0.8 (1.1-2.2); Alkaline Phosphatase 133 Units/L (34-104); Amylase 340 Units/L (29-103); Aspartate Amino Transferase 61 Units/L (13-39); BUN/Creatinine Ratio 41 (6-26); Bilirubin,Total 0.9 mg/dL (0.3-1.0); Blood Urea Nitrogen 54 mg/dL (8-23); Carbon Dioxide 31 mEq/L (23-29); Chloride 108 mEq/L (98-107); Globulin 3.2 g/dL (2.4-3.5); Glucose 123 mg/dL (70-105); Lipase 103 Units/L (11-82); Magnesium 2.4 mg/dL (1.6-2.6); Osmolality,Calculated 320 (280-300); Sodium 147 mEq/L (136-145); Total Protein 5.7 g/dL (6.4-8.9); eGFR For African Americans > 60 (> 60); eGFR For Non-African Americans 53 (> 60)
[2020-06-20 05:10] LABS: Troponin I 0.08 ng/mL (< 0.04)
[2020-06-20 05:27] LABS: Platelet Estimate Normal (Normal); Toxic Granulation Present (Not Present)
[2020-06-20] MEDS: Pantoprazole 40 MG VIAL IVP SCH ×2 (05:31→17:20)
[2020-06-20] MEDS: Insulin LISPRO 300 UNITS/3 ML VIAL SUBQ SCH ×4 (05:38→23:45)
[2020-06-20] MEDS: Cholecalciferol (D-3) 1,000 UNIT (25MCG) TABLET PO SCH (08:45)
[2020-06-20] MEDS: Dexmedetomidine HCl 400 MCG/100 ML MLS IVC SCH (08:45)
[2020-06-20] MEDS: Dexamethasone 4 MG/ML VIAL IVP SCH (08:52)
[2020-06-20] MEDS ORDERED: Furosemide 20 MG/2 ML VIAL IVP SCH (09:00)
[2020-06-20] MEDS ORDERED: Perflutren Lipid Microsphere 1.3 ML in 0.9 % Sodium Chloride 8.7 ML IVP PRN (09:44)
[2020-06-20] MEDS: Heparin 25,000UNIT/250ML 1/2NS 25,000 UNIT/250 ML IV.SOLN IVC SCH (09:53)
[2020-06-20] MEDS: *HR* Metoprolol 5 MG/5 ML VIAL IVP SCH ×3 (12:43→23:51)
[2020-06-20 13:15] LABS: Hematocrit 26.6 % (37.5-50.1); Hemoglobin 8.4 g/dL (12.9-16.9)
[2020-06-20] MEDS ORDERED: D5% in Water 1,000 ML IVC SCH (16:15)
[2020-06-20] MEDS: Piperacillin/Tazobactam 3.375 GM in D5% in Water (Mini-Bag+) 100 ML IVPB SCH ×2 (18:07→23:51)
[2020-06-20 20:13] LABS: Hematocrit 25.9 % (37.5-50.1)
[2020-06-20] MEDS: Magic Mouthwash 10 ML UD Cup PO SCH (21:26)
[2020-06-21] MEDS: Ipratropium 1 PUFF INHALER IH SCH ×7 (00:08→23:05)
[2020-06-21] MEDS: Artificial Tears SOLN 15 ML BOTTLE BOTH EYES SCH (00:31)
[2020-06-21] MEDS: Amiodarone Premix 360 MG/200 ML BAG IVC SCH ×2 (02:40→15:07)
[2020-06-21 02:44] LABS: Mean Corpuscular HGB Conc 30.8 g/dL (31.6-35.5); Mean Corpuscular Hemoglobin 29.9 pg (28.0-33.3); Mean Platelet Volume 9.8 fL (9.4-12.4); Nucleated Red Blood Cells 0.3 /100 WBC (0); Platelet Count 259 K/mcL (140-400); Red Blood Count 2.68 M/mcL (4.19-5.50); Red Cell Distribution Width 15.4 % (11.5-14.5); White Blood Count 12.5 K/mcL (4.3-11.1)
[2020-06-21 02:48] LABS: VBG Ionized Calcium 1.16 mmol/L (1.15-1.35)
[2020-06-21 03:02] LABS: Anisocytosis 1+ (Not Present); Toxic Granulation Present (Not Present)
[2020-06-21 03:04] LABS: Platelet Estimate Normal (Normal); Reactive Lymphocytes Present (Not Present)
[2020-06-21 03:05] LABS: Alanine Aminotransferase 106 Units/L (7-52); Albumin 2.5 g/dL (3.5-5.7); Albumin/Globulin Ratio 0.8 (1.1-2.2); Alkaline Phosphatase 121 Units/L (34-104); Amylase 255 Units/L (29-103); Aspartate Amino Transferase 41 Units/L (13-39); BUN/Creatinine Ratio 41 (6-26); Bilirubin,Total 0.6 mg/dL (0.3-1.0); Blood Urea Nitrogen 49 mg/dL (8-23); Calcium 8.1 mg/dL (8.6-10.3); Carbon Dioxide 30 mEq/L (23-29); Chloride 110 mEq/L (98-107); Glucose 135 mg/dL (70-105); Lipase 106 Units/L (11-82); Magnesium 2.3 mg/dL (1.6-2.6); Osmolality,Calculated 317 (280-300); Phosphorous 2.7 mg/dL (2.7-4.5); Potassium 3.8 mEq/L (3.5-5.1); Sodium 146 mEq/L (136-145); Total Protein 5.5 g/dL (6.4-8.9); eGFR For African Americans > 60 (> 60); eGFR For Non-African Americans 58 (> 60)
[2020-06-21] MEDS: Norepinephrine 4 MG/254 ML IV.SOLN IVC SCH (04:03)
[2020-06-21] MEDS: Insulin LISPRO 300 UNITS/3 ML VIAL SUBQ SCH ×4 (04:40→23:33)
[2020-06-21] MEDS: *HR* Metoprolol 5 MG/5 ML VIAL IVP SCH ×4 (06:21→23:33)
[2020-06-21] MEDS: Pantoprazole 40 MG VIAL IVP SCH ×2 (06:22→18:40)
[2020-06-21] MEDS: Heparin 25,000UNIT/250ML 1/2NS 25,000 UNIT/250 ML IV.SOLN IVC SCH (08:05)
[2020-06-21] MEDS: Piperacillin/Tazobactam 3.375 GM in D5% in Water (Mini-Bag+) 100 ML IVPB SCH ×3 (09:18→23:33)
[2020-06-21] MEDS: Magic Mouthwash 10 ML UD Cup PO SCH ×3 (09:18→18:39)
[2020-06-21] MEDS: Dexamethasone 4 MG/ML VIAL IVP SCH (09:20)
[2020-06-21] MEDS ORDERED: D5% in Water 1,000 ML IVC SCH (11:45)
[2020-06-21] MEDS ORDERED: Ondansetron 4 MG/2 ML VIAL ONE (12:33)
[2020-06-21] MEDS ORDERED: Dexamethasone 4 MG/ML VIAL ONE (12:33)
[2020-06-21] MEDS ORDERED: Lidocaine -MPF 2% 2 ML VIAL ONE (12:33)
[2020-06-21] MEDS ORDERED: Lidocaine -MPF 4% 5 ML AMPUL ONE (12:33)
[2020-06-21] MEDS ORDERED: *HR* Propofol 200 MG/20 ML VIAL IVP ONE (12:34)
[2020-06-21] MEDS ORDERED: *HR* FentaNYL (PF) 100 MCG/2 ML VIAL ONE (12:34)
[2020-06-21] MEDS: Cholecalciferol (D-3) 1,000 UNIT (25MCG) TABLET PO SCH (15:08)
[2020-06-21] MEDS ORDERED: *HR* LORazepam 2 MG/ML VIAL IVP ONE (16:08)
[2020-06-21] MEDS: Aspirin Enteric Coated 81 MG Tablet PO SCH (18:39)
[2020-06-21 19:01] LABS: Hematocrit 24.6 % (37.5-50.1); Hemoglobin 7.5 g/dL (12.9-16.9)
[2020-06-21] MEDS ORDERED: Acetaminophen IV 1,000 MG/100 ML BAG IVPB ONE (20:40)
[2020-06-21] MEDS: Dexmedetomidine HCl 400 MCG/100 ML MLS IVC SCH (23:29)
[2020-06-22] MEDS: Ipratropium 1 PUFF INHALER IH SCH ×6 (03:19→23:23)
[2020-06-22] MEDS: Insulin LISPRO 300 UNITS/3 ML VIAL SUBQ SCH ×3 (05:20→16:51)
[2020-06-22 06:18] LABS: Basophils % 0.2 %; Hemoglobin 7.6 g/dL (12.9-16.9); Immature Granulocytes % 1.8 % (0-4); Lymphocytes # 0.7 K/mcL (0.6-4.6); Lymphocytes % 5.8 %; Mean Corpuscular HGB Conc 30.4 g/dL (31.6-35.5); Mean Corpuscular Hemoglobin 29.3 pg (28.0-33.3); Mean Corpuscular Volume 96.5 fL (83.0-100.0); Mean Platelet Volume 10.1 fL (9.4-12.4); Monocytes # 0.2 K/mcL (0.0-1.3); Monocytes % 1.5 %; Neutrophils # 10.4 K/mcL (1.6-8.9); Nucleated Red Blood Cells 0.2 /100 WBC (0); Platelet Count 287 K/mcL (140-400); Red Blood Count 2.59 M/mcL (4.19-5.50); Red Cell Distribution Width 15.1 % (11.5-14.5); Segmented Neutrophils % 90.7 %; White Blood Count 11.5 K/mcL (4.3-11.1)
[2020-06-22] MEDS: *HR* Metoprolol 5 MG/5 ML VIAL IVP SCH ×4 (06:19→17:43)
[2020-06-22] MEDS: Pantoprazole 40 MG VIAL IVP SCH ×2 (06:20→17:43)
[2020-06-22 06:21] LABS: VBG Ionized Calcium 1.22 mmol/L (1.15-1.35)
[2020-06-22] MEDS: Amiodarone Premix 360 MG/200 ML BAG IVC SCH ×2 (06:29→16:22)
[2020-06-22 06:43] LABS: Alanine Aminotransferase 93 Units/L (7-52); Albumin 2.5 g/dL (3.5-5.7); Albumin/Globulin Ratio 0.8 (1.1-2.2); Alkaline Phosphatase 106 Units/L (34-104); Amylase 144 Units/L (29-103); Aspartate Amino Transferase 30 Units/L (13-39); BUN/Creatinine Ratio 40 (6-26); Bilirubin,Total 0.5 mg/dL (0.3-1.0); Blood Urea Nitrogen 43 mg/dL (8-23); Calcium 8.2 mg/dL (8.6-10.3); Carbon Dioxide 27 mEq/L (23-29); Chloride 103 mEq/L (98-107); Glucose 134 mg/dL (70-105); Lipase 65 Units/L (11-82); Osmolality,Calculated 295 (280-300); Phosphorous 3.4 mg/dL (2.7-4.5); Potassium 4.3 mEq/L (3.5-5.1); Sodium 136 mEq/L (136-145); Total Protein 5.5 g/dL (6.4-8.9); eGFR For African Americans > 60 (> 60); eGFR For Non-African Americans > 60 (> 60)
[2020-06-22] MEDS: Heparin 25,000UNIT/250ML 1/2NS 25,000 UNIT/250 ML IV.SOLN IVC SCH (07:30)
[2020-06-22] MEDS: Aspirin Enteric Coated 81 MG Tablet PO SCH (08:10)
[2020-06-22] MEDS: Cholecalciferol (D-3) 1,000 UNIT (25MCG) TABLET PO SCH (08:15)
[2020-06-22] MEDS: Magic Mouthwash 10 ML UD Cup PO SCH ×3 (08:21→15:59)
[2020-06-22] MEDS: Dexamethasone 4 MG/ML VIAL IVP SCH (08:21)
[2020-06-22 17:15] LABS: Hematocrit 23.4 % (37.5-50.1); Hemoglobin 7.4 g/dL (12.9-16.9)
[2020-06-22] MEDS ORDERED: Budesonide/Formoterol 160/4.5 1 PUFF INH IH ONE (19:31)
[2020-06-22] MEDS: Budesonide/Formoterol 160/4.5 1 PUFF INH IH SCH (19:33)
[2020-06-22 21:48] LABS: Hemoglobin 8.2 g/dL (12.9-16.9)
[2020-06-22] MEDS ORDERED: D5% in 0.45% NACL 1,000 ML IVC SCH (22:15)
[2020-06-23] MEDS: Insulin LISPRO 300 UNITS/3 ML VIAL SUBQ SCH ×4 (00:06→21:06)
[2020-06-23] MEDS: *HR* Metoprolol 5 MG/5 ML VIAL IVP SCH ×4 (00:11→17:40)
[2020-06-23] MEDS: Ipratropium 1 PUFF INHALER IH SCH ×6 (03:43→23:53)
[2020-06-23] MEDS: Amiodarone Premix 360 MG/200 ML BAG IVC SCH (03:52)
[2020-06-23] MEDS: Pantoprazole 40 MG VIAL IVP SCH ×2 (06:35→17:40)
[2020-06-23 07:02] LABS: Basophils % 0.2 %; Eosinophils % 0.2 %; Hemoglobin 7.1 g/dL (12.9-16.9); Lymphocytes # 1.1 K/mcL (0.6-4.6); Lymphocytes % 9.8 %; Mean Corpuscular HGB Conc 30.9 g/dL (31.6-35.5); Mean Corpuscular Hemoglobin 29.3 pg (28.0-33.3); Mean Platelet Volume 9.8 fL (9.4-12.4); Monocytes # 0.2 K/mcL (0.0-1.3); Monocytes % 1.9 %; Neutrophils # 9.6 K/mcL (1.6-8.9); Platelet Count 284 K/mcL (140-400); Red Blood Count 2.42 M/mcL (4.19-5.50); Segmented Neutrophils % 85.9 %; White Blood Count 11.2 K/mcL (4.3-11.1)
[2020-06-23 07:27] LABS: Alanine Aminotransferase 82 Units/L (7-52); Albumin 2.3 g/dL (3.5-5.7); Albumin/Globulin Ratio 0.8 (1.1-2.2); Alkaline Phosphatase 90 Units/L (34-104); Amylase 210 Units/L (29-103); Aspartate Amino Transferase 28 Units/L (13-39); BUN/Creatinine Ratio 40 (6-26); Bilirubin,Total 0.5 mg/dL (0.3-1.0); Blood Urea Nitrogen 39 mg/dL (8-23); Calcium 7.9 mg/dL (8.6-10.3); Carbon Dioxide 27 mEq/L (23-29); Chloride 105 mEq/L (98-107); Globulin 2.8 g/dL (2.4-3.5); Glucose 124 mg/dL (70-105); Lipase 107 Units/L (11-82); Osmolality,Calculated 293 (280-300); Phosphorous 2.3 mg/dL (2.7-4.5); Potassium 3.9 mEq/L (3.5-5.1); Sodium 136 mEq/L (136-145); Total Protein 5.1 g/dL (6.4-8.9); eGFR For African Americans > 60 (> 60); eGFR For Non-African Americans > 60 (> 60)
[2020-06-23] MEDS: Budesonide/Formoterol 160/4.5 1 PUFF INH IH SCH (07:46)
[2020-06-23] MEDS: Aspirin Enteric Coated 81 MG Tablet PO SCH (09:17)
[2020-06-23] MEDS: Cholecalciferol (D-3) 1,000 UNIT (25MCG) TABLET PO SCH (09:17)
[2020-06-23] MEDS: Heparin 25,000UNIT/250ML 1/2NS 25,000 UNIT/250 ML IV.SOLN IVC SCH (09:19)
[2020-06-23] MEDS: Magic Mouthwash 10 ML UD Cup PO SCH ×3 (09:21→14:58)
[2020-06-23] MEDS ORDERED: Morphine Sulfate 2 MG/ML SYRINGE IVP STA (11:24)
[2020-06-23] MEDS ORDERED: Fluconazole 400 MG/200 ML 400 MG/200 ML BAG IVPB SCH (11:45)
[2020-06-23] MEDS: Morphine Sulfate 2 MG/ML SYRINGE IVP PRN ×3 (14:58→23:32)
[2020-06-23] MEDS ORDERED: Iron Sucrose Complex 250 MG in 0.9 % Sodium Chloride 250 ML IVPB SCH (15:00)
[2020-06-24] MEDS: Insulin LISPRO 300 UNITS/3 ML VIAL SUBQ SCH ×4 (00:54→17:48)
[2020-06-24] MEDS: *HR* Dextrose 50 % in Water (Vial) 50 ML VIAL IVP PRN ×2 (01:03→06:21)
[2020-06-24] MEDS: *HR* Metoprolol 5 MG/5 ML VIAL IVP SCH ×5 (01:12→23:54)
[2020-06-24] MEDS: Ipratropium 1 PUFF INHALER IH SCH ×6 (03:22→20:02)
[2020-06-24 05:17] LABS: Basophils % 0.1 %; Eosinophils # 0.1 K/mcL (0.0-0.6); Eosinophils % 0.6 %; Hematocrit 23.4 % (37.5-50.1); Hemoglobin 7.3 g/dL (12.9-16.9); Immature Granulocytes % 1.6 % (0-4); Lymphocytes # 0.7 K/mcL (0.6-4.6); Lymphocytes % 6.8 %; Mean Corpuscular HGB Conc 31.2 g/dL (31.6-35.5); Mean Corpuscular Hemoglobin 30.4 pg (28.0-33.3); Mean Corpuscular Volume 97.5 fL (83.0-100.0); Mean Platelet Volume 9.8 fL (9.4-12.4); Monocytes # 0.3 K/mcL (0.0-1.3); Monocytes % 2.5 %; Neutrophils # 9.2 K/mcL (1.6-8.9); Nucleated Red Blood Cells 0.2 /100 WBC (0); Platelet Count 282 K/mcL (140-400); Red Cell Distribution Width 15.4 % (11.5-14.5); Segmented Neutrophils % 88.4 %; White Blood Count 10.4 K/mcL (4.3-11.1)
[2020-06-24 05:24] LABS: VBG Ionized Calcium 1.21 mmol/L (1.15-1.35)
[2020-06-24 05:37] LABS: Alanine Aminotransferase 85 Units/L (7-52); Albumin 2.3 g/dL (3.5-5.7); Albumin/Globulin Ratio 0.8 (1.1-2.2); Alkaline Phosphatase 95 Units/L (34-104); Aspartate Amino Transferase 33 Units/L (13-39); BUN/Creatinine Ratio 32 (6-26); Bilirubin,Total 0.6 mg/dL (0.3-1.0); Blood Urea Nitrogen 32 mg/dL (8-23); Calcium 8.1 mg/dL (8.6-10.3); Carbon Dioxide 26 mEq/L (23-29); Chloride 108 mEq/L (98-107); Globulin 2.8 g/dL (2.4-3.5); Glucose 74 mg/dL (70-105); Magnesium 1.9 mg/dL (1.6-2.6); Osmolality,Calculated 290 (280-300); Phosphorous 2.6 mg/dL (2.7-4.5); Sodium 137 mEq/L (136-145); Total Protein 5.1 g/dL (6.4-8.9); eGFR For African Americans > 60 (> 60); eGFR For Non-African Americans > 60 (> 60)
[2020-06-24] MEDS: Pantoprazole 40 MG VIAL IVP SCH ×2 (06:19→21:28)
[2020-06-24] MEDS: Morphine Sulfate 2 MG/ML SYRINGE IVP PRN (06:34)
[2020-06-24] MEDS: Heparin 25,000UNIT/250ML 1/2NS 25,000 UNIT/250 ML IV.SOLN IVC SCH ×2 (07:07→08:52)
[2020-06-24] MEDS ORDERED: Acetaminophen 325 MG TABLET PO PRN (07:43)
[2020-06-24] MEDS ORDERED: Dextrose Gel 15 GM/37.5 ML TUBE PO PRN ×2 (07:43)
[2020-06-24] MEDS ORDERED: D5% in Water 1,000 ML IVC PRN (07:43)
[2020-06-24] MEDS ORDERED: *HR* Heparin 5,000 UNIT/ML VIAL IVP PRN ×2 (07:43)
[2020-06-24] MEDS ORDERED: Naloxone 0.4 MG/ML INJ IVP PRN (07:43)
[2020-06-24] MEDS ORDERED: Piperacillin/Tazobactam 3.375 GM in 0.9 % Sodium Chloride Mini Bag 100 ML IVPB SCH (08:00)
[2020-06-24] MEDS: Cholecalciferol (D-3) 1,000 UNIT (25MCG) TABLET PO SCH (09:33)
[2020-06-24] MEDS: Magic Mouthwash 10 ML UD Cup PO SCH ×2 (11:36→17:25)
[2020-06-24] MEDS: Piperacillin/Tazobactam 3.375 GM in 0.9 % Sodium Chloride Mini Bag 100 ML IVPB SCH (21:29)
[2020-06-24] MEDS: D5% in 0.45% NACL w KCl 20 MEQ/1,000 ML MLS IVC SCH (21:31)
[2020-06-24] MEDS: Acyclovir 500 MG in D5% in Water 100 ML IVPB SCH (23:50)
[2020-06-25] MEDS: Insulin LISPRO 300 UNITS/3 ML VIAL SUBQ SCH ×4 (00:14→18:15)
[2020-06-25] MEDS: Ipratropium 1 PUFF INHALER IH SCH ×6 (00:25→20:49)
[2020-06-25] MEDS ORDERED: *HR* HYDROmorphone (PF) 1 MG/ML SYRINGE IVP ONE (02:20)
[2020-06-25] MEDS: Piperacillin/Tazobactam 3.375 GM in 0.9 % Sodium Chloride Mini Bag 100 ML IVPB SCH ×3 (03:53→21:46)
[2020-06-25 04:34] LABS: Hematocrit 21.1 % (37.5-50.1); Hemoglobin 6.3 g/dL (12.9-16.9); Mean Corpuscular HGB Conc 29.9 g/dL (31.6-35.5); Mean Corpuscular Hemoglobin 29.4 pg (28.0-33.3); Mean Corpuscular Volume 98.6 fL (83.0-100.0); Mean Platelet Volume 9.6 fL (9.4-12.4); Monocytes # 0.2 K/mcL (0.0-1.3); Platelet Count 236 K/mcL (140-400); Red Blood Count 2.14 M/mcL (4.19-5.50); Red Cell Distribution Width 15.6 % (11.5-14.5)
[2020-06-25 04:34] LABS: VBG Ionized Calcium 1.26 mmol/L (1.15-1.35)
[2020-06-25 04:50] LABS: Alanine Aminotransferase 62 Units/L (7-52); Albumin 2.1 g/dL (3.5-5.7); Albumin/Globulin Ratio 0.8 (1.1-2.2); Alkaline Phosphatase 80 Units/L (34-104); Aspartate Amino Transferase 20 Units/L (13-39); BUN/Creatinine Ratio 33 (6-26); Bilirubin,Total 0.7 mg/dL (0.3-1.0); Blood Urea Nitrogen 25 mg/dL (8-23); Calcium 7.9 mg/dL (8.6-10.3); Carbon Dioxide 26 mEq/L (23-29); Chloride 110 mEq/L (98-107); Globulin 2.7 g/dL (2.4-3.5); Glucose 101 mg/dL (70-105); Magnesium 1.8 mg/dL (1.6-2.6); Osmolality,Calculated 291 (280-300); Phosphorous 2.1 mg/dL (2.7-4.5); Potassium 3.9 mEq/L (3.5-5.1); Sodium 138 mEq/L (136-145); Total Protein 4.8 g/dL (6.4-8.9); eGFR For African Americans > 60 (> 60); eGFR For Non-African Americans > 60 (> 60)
[2020-06-25 05:08] LABS: White Blood Count 4.7 K/mcL (4.3-11.1)
[2020-06-25 05:39] LABS: Lymphocytes # 0.2 K/mcL (0.6-4.6); Neutrophils # 4.3 K/mcL (1.6-8.9)
[2020-06-25 05:40] LABS: Platelet Estimate Normal (Normal)
[2020-06-25] MEDS: *HR* Metoprolol 5 MG/5 ML VIAL IVP SCH ×3 (06:08→18:05)
[2020-06-25] MEDS: Pantoprazole 40 MG VIAL IVP SCH ×2 (06:09→18:05)
[2020-06-25] MEDS: Heparin 25,000UNIT/250ML 1/2NS 25,000 UNIT/250 ML IV.SOLN IVC SCH (08:04)
[2020-06-25] MEDS: Magic Mouthwash 10 ML UD Cup PO SCH ×3 (08:05→15:47)
[2020-06-25] MEDS: Cholecalciferol (D-3) 1,000 UNIT (25MCG) TABLET PO SCH (08:05)
[2020-06-25] MEDS: Acyclovir 500 MG in D5% in Water 100 ML IVPB SCH ×2 (08:06→17:13)
[2020-06-25] MEDS: D5% in 0.45% NACL w KCl 20 MEQ/1,000 ML MLS IVC SCH (08:13)
[2020-06-25 15:48] LABS: Hematocrit 23.2 % (37.5-50.1); Hemoglobin 7.2 g/dL (12.9-16.9)
[2020-06-25] MEDS: Morphine Sulfate 2 MG/ML SYRINGE IVP PRN (21:47)
[2020-06-26] MEDS: Ipratropium 1 PUFF INHALER IH SCH ×6 (00:06→20:27)
[2020-06-26] MEDS: *HR* Metoprolol 5 MG/5 ML VIAL IVP SCH ×4 (00:44→18:40)
[2020-06-26] MEDS: Acyclovir 500 MG in D5% in Water 100 ML IVPB SCH ×3 (00:45→17:50)
[2020-06-26] MEDS: D5% in 0.45% NACL w KCl 20 MEQ/1,000 ML MLS IVC SCH ×2 (01:52→17:49)
[2020-06-26] MEDS: Insulin LISPRO 300 UNITS/3 ML VIAL SUBQ SCH ×5 (01:53→23:00)
[2020-06-26] MEDS: Piperacillin/Tazobactam 3.375 GM in 0.9 % Sodium Chloride Mini Bag 100 ML IVPB SCH ×3 (04:27→22:04)
[2020-06-26] MEDS: Pantoprazole 40 MG VIAL IVP SCH ×2 (05:40→18:40)
[2020-06-26 07:31] LABS: Basophils % 0.5 %; Eosinophils # 0.2 K/mcL (0.0-0.6); Eosinophils % 5.6 %; Hematocrit 22.6 % (37.5-50.1); Hemoglobin 7.1 g/dL (12.9-16.9); Immature Granulocytes % 4.2 % (0-4); Lymphocytes # 0.5 K/mcL (0.6-4.6); Lymphocytes % 13.5 %; Mean Corpuscular HGB Conc 31.4 g/dL (31.6-35.5); Mean Corpuscular Hemoglobin 30.3 pg (28.0-33.3); Mean Corpuscular Volume 96.6 fL (83.0-100.0); Mean Platelet Volume 9.6 fL (9.4-12.4); Monocytes # 0.2 K/mcL (0.0-1.3); Monocytes % 6.1 %; Neutrophils # 2.6 K/mcL (1.6-8.9); Platelet Count 241 K/mcL (140-400); Red Blood Count 2.34 M/mcL (4.19-5.50); Red Cell Distribution Width 15.9 % (11.5-14.5); Segmented Neutrophils % 70.1 %; White Blood Count 3.8 K/mcL (4.3-11.1)
[2020-06-26 07:52] LABS: Alanine Aminotransferase 43 Units/L (7-52); Albumin 2.1 g/dL (3.5-5.7); Albumin/Globulin Ratio 0.8 (1.1-2.2); Alkaline Phosphatase 72 Units/L (34-104); Aspartate Amino Transferase 14 Units/L (13-39); BUN/Creatinine Ratio 28 (6-26); Bilirubin,Total 0.7 mg/dL (0.3-1.0); Blood Urea Nitrogen 22 mg/dL (8-23); Calcium 7.9 mg/dL (8.6-10.3); Carbon Dioxide 25 mEq/L (23-29); Chloride 108 mEq/L (98-107); Globulin 2.7 g/dL (2.4-3.5); Glucose 106 mg/dL (70-105); Magnesium 1.7 mg/dL (1.6-2.6); Osmolality,Calculated 290 (280-300); Phosphorous 1.8 mg/dL (2.7-4.5); Potassium 3.8 mEq/L (3.5-5.1); Sodium 138 mEq/L (136-145); Total Protein 4.8 g/dL (6.4-8.9); eGFR For African Americans > 60 (> 60); eGFR For Non-African Americans > 60 (> 60)
[2020-06-26] MEDS: Cholecalciferol (D-3) 1,000 UNIT (25MCG) TABLET PO SCH (08:29)
[2020-06-26] MEDS: Magic Mouthwash 10 ML UD Cup PO SCH ×3 (08:29→17:49)
[2020-06-26] MEDS: Morphine Sulfate 2 MG/ML SYRINGE IVP PRN ×3 (08:36→15:28)
[2020-06-26] MEDS ORDERED: 0.9 % Sodium Chloride 250 ML IVC SCH (11:15)
[2020-06-26] MEDS ORDERED: 0.9 % Sodium Chloride 250 ML ONE (12:01)
[2020-06-26 12:37] LABS: VBG Ionized Calcium 1.23 mmol/L (1.15-1.35)
[2020-06-26] MEDS ORDERED: Saline Nasal Spray 44 ML BOTTLE NS ONE (19:45)
[2020-06-26] MEDS: Chlorhexidine Rinse 15 ML MOUTHWASH MM SCH (22:04)
[2020-06-26] MEDS ORDERED: Ipratropium 1 PUFF INHALER IH PRN (22:10)
[2020-06-27] MEDS: *HR* Metoprolol 5 MG/5 ML VIAL IVP SCH ×5 (00:03→19:32)
[2020-06-27] MEDS: Morphine Sulfate 2 MG/ML SYRINGE IVP PRN ×3 (00:15→22:16)
[2020-06-27] MEDS ORDERED: *HR* Alteplase (Cathflo) 2 MG VIAL IVP ONE ×2 (03:13→09:06)
[2020-06-27] MEDS: Piperacillin/Tazobactam 3.375 GM in 0.9 % Sodium Chloride Mini Bag 100 ML IVPB SCH ×3 (04:18→20:37)
[2020-06-27] MEDS: Pantoprazole 40 MG VIAL IVP SCH ×2 (05:45→19:31)
[2020-06-27] MEDS: Insulin LISPRO 300 UNITS/3 ML VIAL SUBQ SCH ×3 (05:59→19:32)
[2020-06-27 07:29] LABS: Hematocrit 26.6 % (37.5-50.1); Hemoglobin 8.3 g/dL (12.9-16.9); Mean Corpuscular HGB Conc 31.2 g/dL (31.6-35.5); Mean Corpuscular Hemoglobin 29.1 pg (28.0-33.3); Mean Corpuscular Volume 93.3 fL (83.0-100.0); Mean Platelet Volume 9.2 fL (9.4-12.4); Platelet Count 235 K/mcL (140-400); Red Blood Count 2.85 M/mcL (4.19-5.50); White Blood Count 4.5 K/mcL (4.3-11.1)
[2020-06-27 07:53] LABS: Alanine Aminotransferase 34 Units/L (7-52); Albumin 2.2 g/dL (3.5-5.7); Albumin/Globulin Ratio 0.8 (1.1-2.2); Alkaline Phosphatase 73 Units/L (34-104); Aspartate Amino Transferase 14 Units/L (13-39); BUN/Creatinine Ratio 20 (6-26); Bilirubin,Total 0.7 mg/dL (0.3-1.0); Blood Urea Nitrogen 15 mg/dL (8-23); Calcium 7.9 mg/dL (8.6-10.3); Carbon Dioxide 24 mEq/L (23-29); Chloride 109 mEq/L (98-107); Globulin 2.8 g/dL (2.4-3.5); Glucose 91 mg/dL (70-105); Osmolality,Calculated 284 (280-300); Sodium 137 mEq/L (136-145); eGFR For African Americans > 60 (> 60); eGFR For Non-African Americans > 60 (> 60)
[2020-06-27] MEDS ORDERED: Lidocaine -MPF 1% 5 ML AMPUL INFILT ONE (08:06)
[2020-06-27] MEDS ORDERED: ALTEPLASE IVP ONE (08:32)
[2020-06-27 08:55] LABS: Eosinophils # 0.4 K/mcL (0.0-0.6); Lymphocytes # 0.9 K/mcL (0.6-4.6); Monocytes # 0.2 K/mcL (0.0-1.3); Neutrophils # 2.8 K/mcL (1.6-8.9)
[2020-06-27 08:56] LABS: Platelet Clumps Few (Not Present); Reactive Lymphocytes Present (Not Present)
[2020-06-27 08:58] LABS: Platelet Estimate Normal (Normal); Toxic Granulation Present (Not Present)
[2020-06-27 08:59] LABS: Anisocytosis 1+ (Not Present); Polychromasia 1+ (Not Present)
[2020-06-27] MEDS: Magic Mouthwash 10 ML UD Cup PO SCH ×4 (09:15→19:40)
[2020-06-27] MEDS: Lidocaine Viscous Oral Soln 15 ML SOLUTION MM PRN (09:30)
[2020-06-27] MEDS: Chlorhexidine Rinse 15 ML MOUTHWASH MM SCH ×4 (09:30→20:38)
[2020-06-27] MEDS: Cholecalciferol (D-3) 1,000 UNIT (25MCG) TABLET PO SCH (11:33)
[2020-06-27] MEDS: D5% in 0.45% NACL w KCl 20 MEQ/1,000 ML MLS IVC SCH (19:40)
[2020-06-28] MEDS: *HR* Metoprolol 5 MG/5 ML VIAL IVP SCH ×4 (00:27→17:11)
[2020-06-28] MEDS: Insulin LISPRO 300 UNITS/3 ML VIAL SUBQ SCH ×4 (00:42→16:06)
[2020-06-28] MEDS: Piperacillin/Tazobactam 3.375 GM in 0.9 % Sodium Chloride Mini Bag 100 ML IVPB SCH ×3 (04:05→21:06)
[2020-06-28 04:47] LABS: Eosinophils # 0.1 K/mcL (0.0-0.6); Hematocrit 26.7 % (37.5-50.1); Hemoglobin 8.4 g/dL (12.9-16.9); Mean Corpuscular HGB Conc 31.5 g/dL (31.6-35.5); Mean Corpuscular Hemoglobin 29.1 pg (28.0-33.3); Mean Corpuscular Volume 92.4 fL (83.0-100.0); Platelet Count 247 K/mcL (140-400); Red Blood Count 2.89 M/mcL (4.19-5.50); Red Cell Distribution Width 16.2 % (11.5-14.5); White Blood Count 5.8 K/mcL (4.3-11.1)
[2020-06-28 05:05] LABS: Alanine Aminotransferase 32 Units/L (7-52); Albumin 2.2 g/dL (3.5-5.7); Albumin/Globulin Ratio 0.7 (1.1-2.2); Alkaline Phosphatase 84 Units/L (34-104); Aspartate Amino Transferase 19 Units/L (13-39); BUN/Creatinine Ratio 15 (6-26); Blood Urea Nitrogen 12 mg/dL (8-23); Calcium 7.8 mg/dL (8.6-10.3); Carbon Dioxide 27 mEq/L (23-29); Chloride 103 mEq/L (98-107); Glucose 108 mg/dL (70-105); Osmolality,Calculated 278 (280-300); Sodium 134 mEq/L (136-145); Total Protein 5.2 g/dL (6.4-8.9); eGFR For African Americans > 60 (> 60); eGFR For Non-African Americans > 60 (> 60)
[2020-06-28 05:14] LABS: Lymphocytes # 0.6 K/mcL (0.6-4.6); Monocytes # 0.2 K/mcL (0.0-1.3); Neutrophils # 4.9 K/mcL (1.6-8.9)
[2020-06-28 05:15] LABS: Anisocytosis 1+ (Not Present); Platelet Estimate Normal (Normal); Reactive Lymphocytes Present (Not Present); Toxic Granulation Present (Not Present)
[2020-06-28] MEDS ORDERED: Acetaminophen IV 500 MG/50 ML BAG IVPB ONE (05:51)
[2020-06-28] MEDS: Pantoprazole 40 MG VIAL IVP SCH ×2 (06:27→17:12)
[2020-06-28] MEDS: Magic Mouthwash 10 ML UD Cup PO SCH ×3 (08:55→17:11)
[2020-06-28] MEDS: Chlorhexidine Rinse 15 ML MOUTHWASH MM SCH ×4 (08:55→21:07)
[2020-06-28] MEDS: Cholecalciferol (D-3) 1,000 UNIT (25MCG) TABLET PO SCH (08:55)
[2020-06-28] MEDS: Lidocaine Viscous Oral Soln 15 ML SOLUTION MM PRN (10:08)
[2020-06-28] MEDS: Morphine Sulfate 2 MG/ML SYRINGE IVP PRN ×3 (10:08→21:07)
[2020-06-28 10:14] LABS: Magnesium 1.4 mg/dL (1.6-2.6); Phosphorous 1.7 mg/dL (2.7-4.5); Triglycerides 127 mg/dL (< 150)
[2020-06-28] MEDS ORDERED: D10% in Water 500 ML IVC PRN (10:33)
[2020-06-28] MEDS: *HR* Dextrose 50 % in Water (Vial) 50 ML VIAL IVP PRN (15:48)
[2020-06-28] MEDS ORDERED: Clinimix E 5%-15% SOLUTION 2,000 ML with MVI, adult with vitamin K 10 ML, Trace Eleme... IVC SCH ×2 (17:00)
[2020-06-28 20:23] LABS: Bacteria,Urine Few per hpf (None-Few); Bilirubin,Urine Negative (Negative); Blood,Urine Large (Negative); Budding Yeast,Urine Few per hpf (None Seen); Clarity,Urine Turbid (Clear); Color,Urine Yellow (Yellow); Glucose,Urine (UA) Normal (Normal); Hyaline Casts,Urine Few per lpf (None Seen); Ketones,Urine Trace mg/dL (Negative); Leukocyte Esterase,Urine Negative (Negative); Mucus,Urine Few per lpf (None-Few); Nitrite,Urine Negative (Negative); Protein,Urine 50 mg/dL (Neg-Trace); RBC,Urine 50-100 per hpf (0-3); Specific Gravity,Urine 1.017 (1.010-1.025); Squamous Epithelial Cell,Urine Few per hpf (None-Few); WBC,Urine 15-30 per hpf (0-3)
[2020-06-29] MEDS: Acetaminophen IV 500 MG/50 ML BAG IVPB SCH ×4 (00:35→18:10)
[2020-06-29] MEDS: Insulin LISPRO 300 UNITS/3 ML VIAL SUBQ SCH ×7 (00:36→20:12)
[2020-06-29] MEDS: *HR* Metoprolol 5 MG/5 ML VIAL IVP SCH ×4 (00:37→17:27)
[2020-06-29] MEDS: Morphine Sulfate 2 MG/ML SYRINGE IVP PRN ×3 (01:38→10:45)
[2020-06-29] MEDS: Piperacillin/Tazobactam 3.375 GM in 0.9 % Sodium Chloride Mini Bag 100 ML IVPB SCH ×3 (05:16→20:08)
[2020-06-29] MEDS: Pantoprazole 40 MG VIAL IVP SCH ×2 (05:17→17:26)
[2020-06-29 07:00] LABS: BUN/Creatinine Ratio 17 (6-26); Blood Urea Nitrogen 14 mg/dL (8-23); Calcium 7.7 mg/dL (8.6-10.3); Carbon Dioxide 28 mEq/L (23-29); Chloride 104 mEq/L (98-107); Glucose 147 mg/dL (70-105); Magnesium 1.5 mg/dL (1.6-2.6); Osmolality,Calculated 283 (280-300); Phosphorous 1.9 mg/dL (2.7-4.5); Potassium 3.5 mEq/L (3.5-5.1); Sodium 135 mEq/L (136-145); eGFR For African Americans > 60 (> 60); eGFR For Non-African Americans > 60 (> 60)
[2020-06-29] MEDS: Magic Mouthwash 10 ML UD Cup PO SCH ×3 (07:50→17:26)
[2020-06-29] MEDS: Chlorhexidine Rinse 15 ML MOUTHWASH MM SCH ×4 (07:50→20:09)
[2020-06-29] MEDS: Cholecalciferol (D-3) 1,000 UNIT (25MCG) TABLET PO SCH (08:31)
[2020-06-29] MEDS ORDERED: Isovue-370 500 ML BOTTLE IVP ONE (10:08)
[2020-06-29] MEDS: Lidocaine Viscous Oral Soln 15 ML SOLUTION MM PRN (10:45)
[2020-06-29] MEDS ORDERED: Vancomycin 1,500 MG/265 ML IV.SOLN IVPB ONE (12:01)
[2020-06-29] MEDS: levoFLOXacin 750 MG/150 ML 750 MG/150 ML BAG IVPB SCH (12:21)
[2020-06-29] MEDS: *HR* Dextrose 50 % in Water (Vial) 50 ML VIAL IVP PRN (12:36)
[2020-06-29] MEDS ORDERED: Furosemide 20 MG/2 ML VIAL IVP ONE (14:51)
[2020-06-29] MEDS ORDERED: Clinimix E 5%-15% SOLUTION 2,000 ML with Trace Elements-5 Concentrate 1 ML IV SCH (17:00)
[2020-06-30] MEDS: Morphine Sulfate 2 MG/ML SYRINGE IVP PRN ×3 (00:18→21:40)
[2020-06-30] MEDS: Acetaminophen IV 500 MG/50 ML BAG IVPB SCH ×4 (01:04→18:43)
[2020-06-30] MEDS: *HR* Metoprolol 5 MG/5 ML VIAL IVP SCH ×4 (01:04→17:28)
[2020-06-30] MEDS: Insulin LISPRO 300 UNITS/3 ML VIAL SUBQ SCH ×6 (03:31→21:36)
[2020-06-30] MEDS: Piperacillin/Tazobactam 3.375 GM in 0.9 % Sodium Chloride Mini Bag 100 ML IVPB SCH ×3 (03:37→21:36)
[2020-06-30] MEDS: Pantoprazole 40 MG VIAL IVP SCH ×2 (03:37→17:27)
[2020-06-30 05:40] LABS: BUN/Creatinine Ratio 21 (6-26); Blood Urea Nitrogen 19 mg/dL (8-23); Calcium 7.9 mg/dL (8.6-10.3); Carbon Dioxide 26 mEq/L (23-29); Chloride 103 mEq/L (98-107); Glucose 215 mg/dL (70-105); Magnesium 1.6 mg/dL (1.6-2.6); Osmolality,Calculated 287 (280-300); Phosphorous 2.1 mg/dL (2.7-4.5); Potassium 3.6 mEq/L (3.5-5.1); Sodium 134 mEq/L (136-145); eGFR For African Americans > 60 (> 60); eGFR For Non-African Americans > 60 (> 60)
[2020-06-30] MEDS: levoFLOXacin 750 MG/150 ML 750 MG/150 ML BAG IVPB SCH (08:09)
[2020-06-30] MEDS: Magic Mouthwash 10 ML UD Cup PO SCH ×3 (08:10→17:27)
[2020-06-30] MEDS: Cholecalciferol (D-3) 1,000 UNIT (25MCG) TABLET PO SCH (08:12)
[2020-06-30 08:51] LABS: Hemoglobin 8.1 g/dL (12.9-16.9); Mean Corpuscular HGB Conc 32.4 g/dL (31.6-35.5); Mean Corpuscular Hemoglobin 30.7 pg (28.0-33.3); Mean Corpuscular Volume 94.7 fL (83.0-100.0); Mean Platelet Volume 9.4 fL (9.4-12.4); Nucleated Red Blood Cells 0.3 /100 WBC (0); Platelet Count 235 K/mcL (140-400); Red Blood Count 2.64 M/mcL (4.19-5.50); Red Cell Distribution Width 16.2 % (11.5-14.5); White Blood Count 7.8 K/mcL (4.3-11.1)
[2020-06-30 08:56] LABS: INR 1.8; Prothrombin Time 20.5 Seconds (9.4-12.1)
[2020-06-30 09:44] LABS: Lymphocytes # 0.6 K/mcL (0.6-4.6); Monocytes # 0.5 K/mcL (0.0-1.3); Neutrophils # 6.7 K/mcL (1.6-8.9)
[2020-06-30 09:45] LABS: Platelet Estimate Normal (Normal)
[2020-06-30 10:10] LABS: Lipase 42 Units/L (11-82)
[2020-06-30] MEDS: Chlorhexidine Rinse 15 ML MOUTHWASH MM SCH ×4 (10:17→21:37)
[2020-06-30] MEDS: Lidocaine Viscous Oral Soln 15 ML SOLUTION MM PRN ×2 (10:52→21:40)
[2020-06-30] MEDS ORDERED: Clinimix E 5%-15% SOLUTION 2,000 ML with MVI, adult with vitamin K 10 ML, Trace Eleme... IVC SCH (17:00)
[2020-06-30] MEDS ORDERED: 0.9 % Sodium Chloride 500 ML ONE (20:58)
[2020-06-30] MEDS: Acyclovir 700 MG in D5% in Water 250 ML IVPB SCH (21:34)
[2020-06-30] MEDS ORDERED: Vancomycin 1,250 MG/262.5 ML IV.SOLN IVPB SCH (22:00)
[2020-07-01] MEDS: *HR* Metoprolol 5 MG/5 ML VIAL IVP SCH ×2 (00:45→06:10)
[2020-07-01] MEDS: Insulin LISPRO 300 UNITS/3 ML VIAL SUBQ SCH ×3 (00:45→10:35)
[2020-07-01] MEDS: Acetaminophen IV 500 MG/50 ML BAG IVPB SCH ×2 (00:46→06:41)
[2020-07-01] MEDS: Morphine Sulfate 2 MG/ML SYRINGE IVP PRN ×2 (00:48→10:00)
[2020-07-01] MEDS ORDERED: Dexmedetomidine HCl 400 MCG/100 ML MLS IVC ONE (02:29)
[2020-07-01] MEDS ORDERED: Dexmedetomidine HCl 400 MCG/100 ML MLS IVC SCH (02:30)
[2020-07-01] MEDS ORDERED: Levalbuterol Neb 1.25 MG/3 ML ONE (02:49)
[2020-07-01] MEDS: Levalbuterol Neb 1.25 MG/3 ML IH SCH ×2 (03:46→10:03)
[2020-07-01] MEDS: Acyclovir 700 MG in D5% in Water 250 ML IVPB SCH (03:53)
[2020-07-01] MEDS: Piperacillin/Tazobactam 3.375 GM in 0.9 % Sodium Chloride Mini Bag 100 ML IVPB SCH (05:15)
[2020-07-01] MEDS: Pantoprazole 40 MG VIAL IVP SCH (06:11)
[2020-07-01 07:51] LABS: Basophils % 0.5 %; Eosinophils % 0.3 %; Hematocrit 23.2 % (37.5-50.1); Hemoglobin 7.2 g/dL (12.9-16.9); Immature Granulocytes % 4.5 % (0-4); Lymphocytes # 0.3 K/mcL (0.6-4.6); Lymphocytes % 3.7 %; Mean Corpuscular Volume 93.5 fL (83.0-100.0); Mean Platelet Volume 9.4 fL (9.4-12.4); Monocytes # 0.2 K/mcL (0.0-1.3); Monocytes % 2.2 %; Neutrophils # 7.7 K/mcL (1.6-8.9); Platelet Count 222 K/mcL (140-400); Red Blood Count 2.48 M/mcL (4.19-5.50); Segmented Neutrophils % 88.8 %; White Blood Count 8.7 K/mcL (4.3-11.1)
[2020-07-01 08:10] LABS: BUN/Creatinine Ratio 31 (6-26); Blood Urea Nitrogen 28 mg/dL (8-23); Calcium 8.1 mg/dL (8.6-10.3); Carbon Dioxide 25 mEq/L (23-29); Chloride 104 mEq/L (98-107); Glucose 148 mg/dL (70-105); Magnesium 1.6 mg/dL (1.6-2.6); Osmolality,Calculated 288 (280-300); Phosphorous 1.6 mg/dL (2.7-4.5); Potassium 3.6 mEq/L (3.5-5.1); Sodium 135 mEq/L (136-145); eGFR For African Americans > 60 (> 60); eGFR For Non-African Americans > 60 (> 60)
[2020-07-01 08:32] LABS: Platelet Estimate Normal (Normal)
[2020-07-01 09:01] VITALS: BP 124/62
[2020-07-01] MEDS: levoFLOXacin 750 MG/150 ML 750 MG/150 ML BAG IVPB SCH (09:24)
[2020-07-01] MEDS: Cholecalciferol (D-3) 1,000 UNIT (25MCG) TABLET PO SCH (09:25)
[2020-07-01] MEDS: Magic Mouthwash 10 ML UD Cup PO SCH (10:35)
[2020-07-01] MEDS: Chlorhexidine Rinse 15 ML MOUTHWASH MM SCH (10:35)
[2020-07-01] MEDS ORDERED: *HR* LORazepam 2 MG/ML VIAL IVP PRN (10:35)
[2020-07-01] MEDS ORDERED: *HR* LORazepam Oral Conc 2 MG/ML SL PRN (10:36)
[2020-07-01] MEDS ORDERED: Morphine Sulfate 2 MG/ML SYRINGE IVP PRN (11:32)
[2020-07-01] MEDS ORDERED: Clinimix E 5%-15% SOLUTION 2,000 ML with Trace Elements-5 Concentrate 1 ML IV SCH (17:00)
[2020-07-02] MEDS ORDERED: Clinimix E 5%-15% SOLUTION 2,000 ML with Trace Elements-5 Concentrate 1 ML IV SCH (17:00)
== END 2020-07-01 12:25 | disposition expired | DRG 871 ==
LOC: 2NENU 06:51 → EMEROOARM 06:51 → SUATTDRO 10:42 → 2NENU 11:55
PROVIDERS: ADMIT Student in an Organized Health Care Education/Training Program; ATTEND Pharmacist